=== PATIENT | male | born 1975 | race Caucasian/White ===

== ENCOUNTER 2016-08-17 20:26 | Emergency (ER) | payer SELFPAY ==
[2016-08-17 20:34] VITALS: BMI 27.2
[2016-08-17 21:51] LABS: ADD MANUAL DIFF? NO
[2016-08-17 21:59] LABS: BASO # 0.02 K/mm3 (0.0-2.0); BASO % 0.2 % (0.0-3.0); EOS # 0.1 (0.0-0.7); EOS % 0.8 % (1.5-5.0); GRAN # 7.43 (1.4-6.5); GRAN % 85.9 % (50.0-68.0); HEMATOCRIT 40.3 % (42.0-52.0); LYMPH # 0.8 (1.2-3.4); LYMPH % 8.9 % (22.0-35.0); MEAN CELL VOLUME 90.4 fL (80.0-105.0); MEAN CORPUSCULAR HEMOGLOBIN 30.3 pg (25.0-35.0); MEAN CORPUSCULAR HGB CONC 33.5 g/dl (31.0-37.0); MEAN PLATELET VOLUME 11.6 fl (7.0-11.0); MONO # 0.4 (0.1-0.6); MONO % 4.2 % (1.0-6.0); PLATELET COUNT 222 10^3/uL (120.0-450.0); RED CELL DISTRIBUTION WIDTH 12.7 % (11.5-14.5); WHITE BLOOD COUNT 8.7 10^3/ul (4.5-11.0)
[2016-08-17 22:18] LABS: ALB/GLOB RATIO 1.2 (1.1-1.8); ALKALINE PHOSPHATASE 60 U/L (38-133); ALT/SGPT 55 U/L (7-56); AST/SGOT 51 U/L (15-59); BILIRUBIN,TOTAL 0.5 mg/dL (0.2-1.3); BLOOD UREA NITROGEN 16 mg/dL (7-21); CALCIUM 9.3 mg/dL (8.4-10.5); CARBON DIOXIDE 26 mmol/L (21-33); CHLORIDE 104 mmol/L (98-107); GFR AFRICAN-AMERICAN > 60; GLUCOSE,RANDOM 124 mg/dL (70-110); POTASSIUM 3.6 mmol/L (3.6-5.0); SODIUM 141 mmol/L (132-148); TOTAL PROTEIN 7.7 g/dL (5.8-8.3)
--- NOTE | 2016-08-18 00:14 | ED PDOC ---
Arrival/HPI - General Chief Complaint: Palpitations Time Seen by Provider: 08/17/16 20:41 Historian: Patient - History of Present Illness Narrative History of Present Illness (Text): 08/18/16 00:11 Otf Robles is a 40 year old male, with a history of schizophrenia, presents to the emergency department complaining of anxiety and palpitations for past few hours. Patient states that symptoms presented after he became angry at home. Denies any chest pain or difficulty breathing. Denies fever, chills headache, dizziness, abdominal pain, nausea, vomiting, diarrhea, or any other complaints at this time. Denies suicidal or homicidal ideations. Time/Duration: 1-3 hours Symptom Onset: Gradual Symptom Course: Unchanged Severity Level: Mild Activities at Onset: Light Past Medical History - Provider Review Nursing Documentation Reviewed: Yes - Cardiac Hx Cardiac Disorders: No Hx Hypertension: No - Pulmonary Hx Tuberculosis: No - Neurological HX Cerebrovascular Accident: No Hx Seizures: No - Hematological/Oncological Hx Cancer: No - Genitourinary/Gynecological Hx Sexually Transmitted Diseases: No - Psychiatric Hx Schizophrenia: Yes Hx Substance Use: (denies) - Past Surgical History Past Surgical History: No Previous - Suicidal Assessment Feels Threatened In Home Enviroment: No Family/Social History - Physician Review Nursing Documentation Reviewed: Yes Family/Social History: No Known Family HX Smoking Status: n Hx Alcohol Use: No Hx Substance Use: (denies) Allergies/Home Meds Allergies/Adverse Reactions: Allergies No Known Allergies Allergy (Verified 08/07/14 22:01) Home Medications: Home Meds Medication Instructions Recorded Confirmed Risperidone [Risperdal] 1 mg PO DAILY 08/07/14 08/18/16 Review of Systems - Physician Review All systems were reviewed & negative as marked: Yes - Review of Systems Constitutional: Normal Eyes: Normal Respiratory: Normal. absent: SOB, Cough, Sputum Cardiovascular: Palpitations Gastrointestinal: Normal. absent: Abdominal Pain, Diarrhea, Nausea, Vomiting Psychiatric: Anxiety. absent: Suicidal Ideation Physical Exam Vital Signs Reviewed: Yes Vital Signs Temp Pulse Pulse Resp BP Pulse Ox 08/18/16 12:35 98.4 F 101 H 18 167/78 H 100 08/18/16 08:00 98.6 F 106 H 18 156/89 H 97 08/18/16 06:27 98.1 F 08/18/16 06:06 92 H 19 141/76 100 08/18/16 04:30 94 H 19 134/84 99 08/17/16 22:29 103 H 21 110/61 96 08/17/16 21:21 129 H 08/17/16 20:34 98.2 F 154 H 24 152/82 H 98 Temperature: Afebrile Blood Pressure: Normal Pulse: Tachycardic Respiratory Rate: Normal Appearance: Positive for: Well-Appearing, Non-Toxic, Comfortable Pain Distress: None Mental Status: Positive for: Alert and Oriented X 3 - Systems Exam Head: Present: Atraumatic, Normocephalic Pupils: Present: PERRL Extroacular Muscles: Present: EOMI Conjunctiva: Present: Normal Respiratory/Chest: Present: Clear to Auscultation, Good Air Exchange. No: Respiratory Distress, Accessory Muscle Use Cardiovascular: Present: Normal S1, S2, Tachycardic. No: Murmurs Abdomen: Present: Normal Bowel Sounds. No: Tenderness, Distention, Peritoneal Signs Upper Extremity: Present: Normal Inspection. No: Cyanosis, Edema Lower Extremity: Present: Normal Inspection. No: Edema Neurological: Present: GCS=15, CN II-XII Intact, Speech Normal Skin: Present: Warm, Dry, Normal Color. No: Rashes Psychiatric: Present: Alert, Oriented x 3. No: Suicidal Ideation, Homicidal Ideation Medical Decision Making ED Course and Treatment: 08/18/16 00:16 Impression: A 40 year old male who presents to the emergency room complaining of anxiety and palpitations which began few hours prior to arrival. Plan: -- EKG -- Drug Screen -- Chest X-ray -- Ativan -- Urinalysis -- Reassess and disposition Progress Notes: 08/18/16 00:16 EKG reviewed by me: Sinus Tachy @ 146 bpm. Possible left atrial enlargement. repeat sinus tachycardia rate 102 08/18/16 05:52 Chest X-ray interpreted by me No acute processes. - Lab Interpretations Lab Results: 08/17/16 21:10 08/17/16 21:10 Lab Results 08/17/16 21:10: WBC 8.7, RBC 4.46, Hgb 13.5 L, Hct 40.3 L, MCV 90.4, MCH 30.3, MCHC 33.5, RDW 12.7, Plt Count 222, MPV 11.6 H, Gran % 85.9 H, Lymph % (Auto) 8.9 L, [place] % (Auto) 4.2, Eos % (Auto) 0.8 L, Baso % (Auto) 0.2, Gran # 7.43 H, Lymph # 0.8 L, [place] # 0.4, Eos # 0.1, Baso # 0.02, Sodium 141, Potassium 3.6, Chloride 104, Carbon Dioxide 26, Anion Gap 15, BUN 16, Creatinine 1.2, Est GFR ( Amer) > 60, Est GFR (Non-Af Amer) > 60, Random Glucose 124 H, Calcium 9.3, Total Bilirubin 0.5, AST 51, ALT 55, Alkaline Phosphatase 60, Total Protein 7.7, Albumin 4.2, Globulin 3.5, Albumin/Globulin Ratio 1.2, Salicylates < 1 L, Acetaminophen < 10.0 L, Alcohol, Quantitative < 10 08/17/16 00:00: Urine Color Yellow, Urine Appearance Slight-cloudy, Urine pH 6.0 , Ur Specific [place] >= 1.030, Urine Protein Trace H, Urine Glucose (UA) Negative, Urine Ketones 15 H, Urine Blood Trace-lysed H, Urine Nitrate Negative , Urine Bilirubin Negative, Urine Urobilinogen 0.2, Ur Leukocyte Esterase Negative, Urine RBC 1 - 3, Urine WBC 0 - 2, Ur Epithelial Cells 0 - 2, Urine Bacteria Few, Urine Other Uyeast, Urine Opiates Screen Negative, Urine Methadone Screen Negative, Ur Barbiturates Screen Negative, Ur Phencyclidine Scrn Negative, Ur Amphetamines Screen Negative, U Benzodiazepines Scrn Negative , U Oth Cocaine Metabols Negative, U Cannabinoids Screen Negative - RAD Interpretation Radiology Orders: 08/17/16 20:50 CHEST PORTABLE [RAD] Stat - EKG Interpretation EKG Interpretation (Text): 08/18/16 05:45 sinus rate 72 no acute changes Interpreted by ED Physician: Yes Type: 12 lead EKG - Medication Orders Current Medication Orders: Discontinued Medications Sodium Chloride (Sodium Chloride 0.9%) 1,000 mls @ 1,000 mls/hr IV .Q1H MANGO Last Admin: 08/18/16 06:01 Dose: 1,000 MLS/HR eMAR Start Stop Document 08/18/16 06:01 (Rec: 08/18/16 06:01 MR [facility] [place]-[id number]) Intravenous Solution Start Date 08/18/16 Start Time 06:01 End Date 08/18/16 End time 07:01 Total Infusion Time 60 Lorazepam (Ativan) 2 mg IVP STAT STA Stop: 08/17/16 20:51 Last Admin: 08/17/16 21:21 Dose: 2 MG Behavioural Document 08/17/16 21:21 MR (Rec: 08/17/16 21:21 [facility] [place]-[id number]) Maintenance Maintenance Dose Yes IVP Administration Document 08/17/16 21:21 MR (Rec: 08/17/16 21:21 [facility] [place]-[id number]) Charges for Administration # of IVP Administrations 1 - Transfer of Care Patient signed out to Dr:: trever pes transfer - Scribe Statement The provider has reviewed the documentation as recorded by the Scribe Abe Wright Provider Attestation: All medical record entries made by the Scribe were at my direction and personally dictated by me. I have reviewed the chart and agree that the record accurately reflects my personal performance of the history, physical exam, medical decision making, and the department course for this patient. I have also personally directed, reviewed, and agree with the discharge instructions and disposition. Disposition/Present on Arrival - Present on Arrival Any Indicators Present on Arrival: No History of DVT/PE: No History of Uncontrolled Diabetes: No Urinary Catheter: No History of Decub. Ulcer: No History Surgical Site Infection Following: None - Disposition Have Diagnosis and Disposition been Completed?: Yes Diagnosis: Psychosis Disposition: HOSPITALIZED Disposition Time: 07:00 Patient Problems: Current Active Problems Problem Status Diagnosed Schizophrenia Acute Condition: STABLE Additional Instructions: pt is medically stable for pes admission and transfer chest x ray nad Referrals: PCP,NO [Primary Care Provider] - Follow up with primary
[2016-08-18 00:39] LABS: URINE BILIRUBIN NEGATIVE (NEGATIVE); URINE BLOOD TRACE-LYSED (NEGATIVE); URINE GLUCOSE (UA) NEGATIVE (NEGATIVE); URINE KETONE 15 mg/dL (NEGATIVE); URINE LEUKOCYTE ESTERASE NEGATIVE Leu/uL (NEGATIVE); URINE PROTEIN TRACE mg/dL (<30 mg/dL); URINE UROBILINOGEN 0.2 E.U./dL (<1 E.U./dL)
[2016-08-18 00:45] LABS: URINE APPEARANCE SLIGHT-CLOUDY (CLEAR); URINE COLOR YELLOW (YELLOW)
[2016-08-18 01:02] LABS: URINE EPITHELIAL CELLS 0 - 2 /hpf (0-5); URINE WBC 0 - 2 /hpf (0-6)
[2016-08-18 01:03] LABS: URINE BACTERIA FEW (NEG)
[2016-08-18] MEDS ORDERED: Sodium Chloride 0.9% 1,000 ML IV SCH (06:00)
--- NOTE | 2016-08-18 07:08 | ED PDOC ---
Physical Exam Vital Signs Reviewed: Yes Vital Signs Temp Pulse Pulse Resp BP Pulse Ox 08/18/16 08:00 98.6 F 106 H 18 156/89 H 97 08/18/16 06:27 98.1 F 08/18/16 06:06 92 H 19 141/76 100 08/18/16 04:30 94 H 19 134/84 99 08/17/16 22:29 103 H 21 110/61 96 08/17/16 21:21 129 H 08/17/16 20:34 98.2 F 154 H 24 152/82 H 98 Temperature: Afebrile Blood Pressure: Hypertensive Pulse: Tachycardic Respiratory Rate: Normal Medical Decision Making ED Course and Treatment: 08/18/16 07:08 Patient signed out to me by Dr. Soto. Pending bed placement. 08/18/16 07:20 On re-evaluation, patient resting comfortably in no acute distress and denies any complaints. 08/18/16 12:04 Kimberlee states pt has been accepted to Dr. Lucho Vasquez form signed 08/18/16 12:17 shraddha Eller from ED, aware of transfer - Lab Interpretations Lab Results: 08/17/16 21:10 08/17/16 21:10 Lab Results 08/17/16 21:10: WBC 8.7, RBC 4.46, Hgb 13.5 L, Hct 40.3 L, MCV 90.4, MCH 30.3, MCHC 33.5, RDW 12.7, Plt Count 222, MPV 11.6 H, Gran % 85.9 H, Lymph % (Auto) 8.9 L, [place] % (Auto) 4.2, Eos % (Auto) 0.8 L, Baso % (Auto) 0.2, Gran # 7.43 H, Lymph # 0.8 L, [place] # 0.4, Eos # 0.1, Baso # 0.02, Sodium 141, Potassium 3.6, Chloride 104, Carbon Dioxide 26, Anion Gap 15, BUN 16, Creatinine 1.2, Est GFR ( Amer) > 60, Est GFR (Non-Af Amer) > 60, Random Glucose 124 H, Calcium 9.3, Total Bilirubin 0.5, AST 51, ALT 55, Alkaline Phosphatase 60, Total Protein 7.7, Albumin 4.2, Globulin 3.5, Albumin/Globulin Ratio 1.2, Salicylates < 1 L, Acetaminophen < 10.0 L, Alcohol, Quantitative < 10 08/17/16 00:00: Urine Color Yellow, Urine Appearance Slight-cloudy, Urine pH 6.0 , Ur Specific [place] >= 1.030, Urine Protein Trace H, Urine Glucose (UA) Negative, Urine Ketones 15 H, Urine Blood Trace-lysed H, Urine Nitrate Negative , Urine Bilirubin Negative, Urine Urobilinogen 0.2, Ur Leukocyte Esterase Negative, Urine RBC 1 - 3, Urine WBC 0 - 2, Ur Epithelial Cells 0 - 2, Urine Bacteria Few, Urine Other Uyeast, Urine Opiates Screen Negative, Urine Methadone Screen Negative, Ur Barbiturates Screen Negative, Ur Phencyclidine Scrn Negative, Ur Amphetamines Screen Negative, U Benzodiazepines Scrn Negative , U Oth Cocaine Metabols Negative, U Cannabinoids Screen Negative - RAD Interpretation Radiology Orders: 08/17/16 20:50 CHEST PORTABLE [RAD] Stat - Medication Orders Current Medication Orders: Sodium Chloride (Sodium Chloride 0.9%) 1,000 mls @ 1,000 mls/hr IV .Q1H MANGO Last Admin: 08/18/16 06:01 Dose: 1,000 MLS/HR eMAR Start Stop Document 08/18/16 06:01 MR (Rec: 08/18/16 06:01 [facility]-[id number]) Intravenous Solution Start Date 08/18/16 Start Time 06:01 End Date 08/18/16 End time 07:01 Total Infusion Time 60 Discontinued Medications Lorazepam (Ativan) 2 mg IVP STAT STA Stop: 08/17/16 20:51 Last Admin: 08/17/16 21:21 Dose: 2 MG Behavioural Document 08/17/16 21:21 MR (Rec: 08/17/16 21:21 [facility]-[id number]) Maintenance Maintenance Dose Yes IVP Administration Document 08/17/16 21:21 MR (Rec: 08/17/16 21:21 [facility]-[id number]) Charges for Administration # of IVP Administrations 1 - Scribe Statement The provider has reviewed the documentation as recorded by the Scribe Debbie Mccarty Provider Scribe Attestation: All medical record entries made by the Scribe were at my direction and personally dictated by me. I have reviewed the chart and agree that the record accurately reflects my personal performance of the history, physical exam, medical decision making, and the department course for this patient. I have also personally directed, reviewed, and agree with the discharge instructions and disposition. Disposition/Present on Arrival - Present on Arrival Any Indicators Present on Arrival: No History of DVT/PE: No History of Uncontrolled Diabetes: No Urinary Catheter: No History of Decub. Ulcer: No History Surgical Site Infection Following: None - Disposition Have Diagnosis and Disposition been Completed?: Yes Diagnosis: Psychosis Disposition: HOSPITALIZED Disposition Time: 12:05 Patient Plan: Transfer To ([facility]) Patient Problems: Current Active Problems Problem Status Diagnosed Schizophrenia Acute Condition: STABLE Additional Instructions: pt is medically stable for pes admission and transfer chest x ray nad Referrals: PCP,NO [Primary Care Provider] - Follow up with primary
--- NOTE | 2016-08-18 07:36 | RAD ---
HISTORY: pes COMPARISON: 08/07/2014 FINDINGS: LUNGS: No active pulmonary disease. PLEURA: No significant pleural effusion identified, no pneumothorax apparent. CARDIOVASCULAR: Normal. OSSEOUS STRUCTURES: No significant abnormalities. VISUALIZED UPPER ABDOMEN: Normal. OTHER FINDINGS: EKG leads in place IMPRESSION: No active disease. No interval pathology appreciated
[2016-08-18 11:41] VITALS: RESP 18
[2016-08-18 12:47] VITALS: BP 167/78; PULSE 101; TEMP 98.4; O2SAT 100
--- NOTE | 2016-08-18 16:18 | CARD ---
APPROVED REPORT EKG Measurement Heart [id number] <Conclusion> Sinus tachycardia NSSTW changes
--- NOTE | 2016-08-18 16:28 | CARD ---
APPROVED REPORT EKG Measurement Heart [id number] <Conclusion> Sinus tachycardia Borderline 1st degree AVB Mild NSSTW changes
== END 2016-08-18 12:45 | disposition short-term general hospital (02) ==
LOC: ED 20:26 → EDBD 20:26 → ED 08-18 12:45
DX: F29 Unspecified psychosis not due to a substance or known physiological condition (principal)
CPT/HCPCS: 71010; 80053; 81001; 85025; 90791; 93005; 96361; 96374; 99285; G0480; J2060; J7040

== ENCOUNTER 2017-06-16 12:50 | Emergency (ER) | payer MEDICAID, OTHER ==
[2017-06-16 12:51] VITALS: BMI 27.2
[2017-06-16 13:22] VITALS: BP 149/92; PULSE 118; RESP 17; TEMP 97.7; O2SAT 100
[2017-06-16] MEDS ORDERED: Bacitracin 500 Units/gm Oint Foilpak UD TOP ONE (13:31)
--- NOTE | 2017-06-27 07:38 | ED PDOC ---
Arrival/HPI - General Chief Complaint: Abnormal Skin Integrity Time Seen by Provider: 06/16/17 13:30 Historian: Patient - History of Present Illness Narrative History of Present Illness (Text): 06/27/17 07:38 A 41 year old male, whose past medical history includes schizophrenia, presents to the emergency department complaining of laceration to right thumb. Patient states he broke a tea pot and placed the handle in his pocket and cut his finger. Patient denies any pain or any other complaints at this time. Symptom Onset: Sudden Symptom Course: Unchanged Activities at Onset: Rest Context: Home Past Medical History - Provider Review Nursing Documentation Reviewed: Yes - Cardiac Hx Cardiac Disorders: No Hx Hypertension: No - Pulmonary Hx Tuberculosis: Yes (PPD +) - Neurological HX Cerebrovascular Accident: No Hx Seizures: No - Hematological/Oncological Hx Cancer: No Other/Comment: Chicken pox - Genitourinary/Gynecological Hx Sexually Transmitted Diseases: No - Psychiatric Hx Schizophrenia: Yes Hx Substance Use: No - Past Surgical History Past Surgical History: No Previous - Surgical History Other/Comment: laproscopy - Suicidal Assessment Feels Threatened In Home Enviroment: No Family/Social History - Physician Review Nursing Documentation Reviewed: Yes Family/Social History: No Known Family HX Smoking Status: Never Smoked Hx Alcohol Use: Yes Frequency of alcohol use: Socially Hx Substance Use: No Allergies/Home Meds Allergies/Adverse Reactions: Allergies No Known Allergies Allergy (Verified 06/16/17 12:57) Home Medications: Home Meds Medication Instructions Recorded Confirmed No Known Home Med 06/16/17 06/16/17 Review of Systems - Physician Review All systems were reviewed & negative as marked: Yes - Review of Systems Skin: Other (laceration to right 1st digit) Neurological: absent: Headache, Dizziness Physical Exam Vital Signs Reviewed: Yes Vital Signs Temp Pulse Resp BP Pulse Ox 06/16/17 13:21 97.7 F 118 H 17 149/92 H 100 06/16/17 12:59 97.8 F 111 H 18 134/93 H 99 Temperature: Afebrile Blood Pressure: Hypertensive Pulse: Tachycardic Respiratory Rate: Normal Appearance: Positive for: Well-Appearing, Non-Toxic, Comfortable Pain Distress: None Mental Status: Positive for: Alert and Oriented X 3 - Systems Exam Head: Present: Atraumatic, Normocephalic Pupils: Present: PERRL Extroacular Muscles: Present: EOMI Conjunctiva: Present: Normal Mouth: Present: Moist Mucous Membranes Neck: Present: Normal Range of Motion Respiratory/Chest: Present: Clear to Auscultation, Good Air Exchange. No: Respiratory Distress, Accessory Muscle Use Cardiovascular: Present: Regular Rate and Rhythm, Normal S1, S2. No: Murmurs Abdomen: Present: Normal Bowel Sounds. No: Tenderness, Distention, Peritoneal Signs Back: Present: Normal Inspection Upper Extremity: Present: Normal Inspection. No: Cyanosis, Edema Lower Extremity: Present: Normal Inspection. No: Edema Neurological: Present: GCS=15, CN II-XII Intact, Speech Normal Skin: Present: Warm, Dry, Normal Color, Laceration (0.5 cm laceration to right 1st digit; denies any pain). No: Rashes Psychiatric: Present: Alert, Oriented x 3, Normal Insight, Normal Concentration Medical Decision Making ED Course and Treatment: 06/27/17 07:36 Impression: A 41 year old male with laceration to right thumb. Plan: -- Bacitracin -- Reassess and disposition Prior Visits: Notes and results from previous visits were reviewed. Patient was last seen in the emergency department on 08/18/16 for evaluation of agitation, anxiety and palpitations. Patient was admitted to psych. Progress Notes: Patient doesn't require laceration repair. - Medication Orders Current Medication Orders: Discontinued Medications Bacitracin (Bacitracin) 1 ea TOP ONCE ONE Stop: 06/16/17 13:32 Last Admin: 06/16/17 13:57 Dose: 1 ea - Scribe Statement The provider has reviewed the documentation as recorded by the Reyna Benjamin Provider Scribe Attestation: All medical record entries made by the Scribjimenez were at my direction and personally dictated by me. I have reviewed the chart and agree that the record accurately reflects my personal performance of the history, physical exam, medical decision making, and the department course for this patient. I have also personally directed, reviewed, and agree with the discharge instructions and disposition. Disposition/Present on Arrival - Present on Arrival Any Indicators Present on Arrival: No History of DVT/PE: No History of Uncontrolled Diabetes: No Urinary Catheter: No History of Decub. Ulcer: No History Surgical Site Infection Following: None - Disposition Have Diagnosis and Disposition been Completed?: Yes Diagnosis: Laceration Disposition: HOME/ ROUTINE Disposition Time: 12:00 Condition: STABLE Discharge Instructions (ExitCare): Laceration (ED), Laceration Without Closure (ED) Additional Instructions: return to er with worsening symptoms or concerns. Referrals: [facility] [Outside] - Follow up with primary [facility] [place]] - Follow up with primary PCP,NO [Primary Care Provider] - Follow up with primary Forms: [employer] (Samoan)
== END 2017-06-16 13:58 | disposition home or self-care (01) ==
LOC: ED 12:50
DX: S61.011A Laceration without foreign body of right thumb without damage to nail, initial encounter (principal); W45.8XXA Other foreign body or object entering through skin, initial encounter; Y92.89 Other specified places as the place of occurrence of the external cause

== ENCOUNTER 2018-02-20 20:36 | Inpatient (IN) | payer MEDICAID, OTHER ==
[2018-02-20 20:37] VITALS: BMI 27.2
[2018-02-20 21:20] VITALS: O2SAT 100
[2018-02-20 21:33] LABS: PH,URINE 6.5 (4.7-8.0); URINE BILIRUBIN NEGATIVE (NEGATIVE); URINE BLOOD TRACE-INTACT (NEGATIVE); URINE GLUCOSE (UA) NEGATIVE (NEGATIVE); URINE LEUKOCYTE ESTERASE NEGATIVE Leu/uL (NEGATIVE); URINE PROTEIN NEGATIVE mg/dL (<30 mg/dL)
[2018-02-20 21:34] LABS: BASO # 0.01 K/mm3 (0.0-2.0); BASO % 0.1 % (0.0-3.0); EOS # 0.6 (0.0-0.7); EOS % 6.6 % (1.5-5.0); GRAN # 4.87 (1.4-6.5); GRAN % 54.9 % (50.0-68.0); LYMPH # 2.7 (1.2-3.4); LYMPH % 30.8 % (22.0-35.0); MEAN CELL VOLUME 94.8 fl (80.0-105.0); MEAN CORPUSCULAR HGB CONC 32.7 g/dl (31.0-37.0); MEAN PLATELET VOLUME 11.1 fl (7.0-11.0); MONO # 0.7 (0.1-0.6); MONO % 7.6 % (1.0-6.0); RBC 4.84 10^6/uL (3.5-6.1); RED CELL DISTRIBUTION WIDTH 12.9 % (11.5-14.5); WHITE BLOOD COUNT 8.9 10^3/ul (4.5-11.0)
[2018-02-20 21:45] LABS: ACETAMINOPHEN < 10.0 ug/ml (10.0-20.0); SALICYLATE < 1 mg/dL (2.0-20.0)
[2018-02-20 21:48] LABS: ALB/GLOB RATIO 1.4 (1.1-1.8); ALBUMIN 4.3 g/dL (3.0-4.8); ALT/SGPT 54 U/L (7-56); AST/SGOT 46 U/L (17-59); BLOOD UREA NITROGEN 14 mg/dL (7-21); CALCIUM 9.4 mg/dL (8.4-10.5); GFR NON-AFRICAN AMERICAN > 60
[2018-02-20 21:56] LABS: BARBITURATES, UR NEGATIVE (NEGATIVE); BENZODIAZEPINES, UR NEGATIVE (NEGATIVE); OPIATES, UR NEGATIVE (NEGATIVE); PHENCYCLIDINE, UR NEGATIVE (NEGATIVE)
[2018-02-20 22:15] LABS: URINE APPEARANCE CLEAR (CLEAR)
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
[2018-02-21] MEDS ORDERED: Magnesium Hydroxide Susp 30 ml UD PO PRN (02:41)
[2018-02-21] MEDS ORDERED: Alum-Mag Hydrox-Simethicone Susp (30 mL) PO PRN (02:41)
--- NOTE | 2018-02-21 02:53 | PCM.BM ---
<Caleb Gomez - Last Filed: 02/21/18 02:50> Treatment Plan Problems - Problems identified on initial assessmt AGITATION/AGGRESSIVE BEHAVIOR Date Initiated: 02/21/18 Time Initiated: 02:50 Assessment reference: NA Status: Active Priority: 1 POOR IMPULSE CONTROL Date Initiated: 02/21/18 Time Initiated: 02:50 Assessment reference: NA Status: Active Priority: 2 MEDICATION NON ADHERENCE Date Initiated: 02/21/18 Time Initiated: 02:50 Assessment reference: NA Status: Active Treatment assets and liabiliti Patient Assests: adapts well, cooperative, motivated, self-reliant, ADL independent, physically healthy, good support system, negotiates basic needs, cognitively intact Patient Liabilities: financial problems, relationship conflicts - Milieu Protocol Maintain good personal hygiene: daily Encourage regular showers, every shift Rem ind patient to perform daily oral care, every shift Assist patient to perform ADL's Maintain personal safety: every shift Educate patient to report safety concerns to staff, every shift Monitor environment for contraband/sharps Medication safety: Monitor for expected outcome, potential side effects: every shift, Assess barriers to learning: every shift, Assess readiness for medication education: every shift Family Contact Family involvement: Family/SO is involved Family contact: Patient agrees to contact Discharge/Continuing Care - Education Needs Education Needs: Patient Medication, Patient Diagnosis/Disease Process, Patient Coping Skills, Patient Anger Management skills, Patient Activities of Daily Living, Patient Health Practices/Safety, Patient Personal Hygiene/Grooming - Discharge Discharge Criteria: Tolerates medication w/o severe side effects, Free of Homicidal thoughts, Free of agitation, Normal sleep pattern <Jackie Spencer - Last Filed: 02/21/18 11:54> - Diagnosis (1) Schizophrenia Status: Acute Interventions: 02/21/18 11:54 Abilify 10 mg HS for mood and impulse control * Trazodone 50 mg HS to help with sleep/mood * Outreach to mother for further collateral if patient consents <Yana Gong - Last Filed: 02/23/18 15:36> Family Contact Family involvement: Family/SO is involved Family contact: Patient agrees to contact - Outside Agency [facility] Care involvment: Not involved
[2018-02-21 07:47] LABS: GLUCOSE,FASTING 106 mg/dL (65-110); HDL CHOLESTEROL 40 mg/dL (29-60)
[2018-02-21 07:57] LABS: LDL CHOLESTEROL 129 mg/dL (0-129)
--- NOTE | 2018-02-21 08:47 | RAD ---
Date of service: 02/20/2018 PROCEDURE: CHEST RADIOGRAPH, 1 VIEW HISTORY: medical screening COMPARISON: 08/17/2016. FINDINGS: LUNGS: The lungs are well inflated and clear. PLEURA: No pneumothorax or pleural fluid seen. CARDIOVASCULAR: Normal. OSSEOUS STRUCTURES: No significant abnormalities. VISUALIZED UPPER ABDOMEN: Normal. OTHER FINDINGS: None. IMPRESSION: No active pulmonary disease.
--- NOTE | 2018-02-21 09:20 | CARD ---
APPROVED REPORT Date of service: 02/20/2018 EKG Measurement Heart [id number] <Conclusion> Sinus tachycardia Otherwise normal ECG
--- NOTE | 2018-02-21 11:52 | PCM.PSYCH ---
Initial Psychiatric Evaluation - Initial Psychiatric Evaluation Type of Admission: Voluntary History of Present Illness and Precipitating Events: Patient is a 42-year-old [place] male with a history of schizophrenia, prior psychiatric admission at [facility] ([facility] in 08/2016, no history of suicide attempts, likely noncompliance with medications, hx of aggression toward his mother in the past who brought himself to the ER for help because he feared that he would hurt his mother. Patient reported that he has been getting increasingly irritated, beck and argumentative with his mother. He is annoyed that she keeps bringing up the same issues over and over again. Patient had thoughts of assaulting his mother however went to the hospital instead to obtain help so that "things would not escalate". Patient denies depression, hallucinations or any new major stressors. Patient indicates that he has been in psychiatric treatment with Dr. Wyatt and prescribed Abilify 10 mg daily. Patient reports he has been taking Abilify at this dose for the last 30 days however this conflicts with ER reports in which patient reported noncompliance with medications since his discharge from [facility]. PSYCHIATRIC HISTORY Patient has been psychiatrically hospitalized on 4-5 prior occasions. Most recently hospitalized August 18 to August 27, 2016 at [facility] ([facility] At that time hes brought in by police after his mother called 911 due to aggression at home. Patient was discharged at that time on Abilify 30 mg Q p.m. and trazodone 50 mg HS PRN and given a diagnosis of chronic schizophrenia. Patient denies any history of SA. Prior medication trials include risperdal and zyprexa. SOCIAL HISTORY [place] He is . He resides with his mother. 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 He denies any drug or alcohol issues. Patient denies any tobacco use. Patient has a histor y of aggression with his mother which prompted police involvement leading to his psychiatric hospitalization at [facility] August 2016 The patient failed the outpatient lower level of care: Yes Current Medications: Active Medications Generic Name Dose Route Start Last Admin Trade Name Freq PRN Reason Stop Dose Admin Acetaminophen 650 mg 02/21/18 02:41 Tylenol 325mg Tab PO Q4H PRN Pain, Mild (1-3) Al Hydrox/Mg Hydrox/Simethicone 30 ml 02/21/18 02:41 Maalox Plus 30 Ml PO DAILY PRN Upset Stomach Magnesium Hydroxide 30 ml 02/21/18 02:41 Milk Of Magnesia PO DAILY PRN Constipation Present on Admission - Present on Admission Any Indicators Present on Admission: No History of DVT/PE: No Past Patient History - PSYCHIATRIC Hx Substance Use: No - Infectious Disease Hx of Infectious Diseases: None - CARDIAC Hx Cardiac Disorders: No Hx Hypertension: No - PULMONARY Hx Respiratory Disorders: No Hx Tuberculosis: Yes (PPD +) - NEUROLOGICAL HX Cerebrovascular Accident: No Hx Seizures: No - HEENT Hx HEENT Problems: No - RENAL Hx Chronic Kidney Disease: No - ENDOCRINE/METABOLIC Hx Endocrine Disorders: No - HEMATOLOGICAL/ONCOLOGICAL Hx Blood Disorders: No Hx Cancer: No Other/Comment: Chicken pox - INTEGUMENTARY Hx Dermatological Problems: No - MUSCULOSKELETAL/RHEUMATOLOGICAL Hx Musculoskeletal Disorders: No - GASTROINTESTINAL Hx Gastrointestinal Disorders: No - GENITOURINARY/GYNECOLOGICAL Hx Genitourinary Disorders: No Hx Sexually Transmitted Disorders: No - SURGICAL HISTORY Hx Surgeries: No Other/Comment: laproscopy Meds Home Medications: Home Medication List Medication Instructions Recorded Confirmed Type Divalproex [Depakote ER] 500 mg PO BID #30 ter 03/02/18 Rx RX: ARIPiprazole [Abilify] 10 mg PO AMHS #30 tab 03/02/18 Rx RX: traZODone [Desyrel] 50 mg PO HS #14 tab 03/02/18 Rx Allergies/Adverse Reactions: Allergies Allergy/AdvReac Type Severity Reaction Status Date / Time No Known Allergies Allergy Verified 06/16/17 12:57 Mental Status Examination - Personal Presentation Personal Presentation: Looks stated age - Affect Affect: Constricted - Motor Activity Motor Activity: Calm - Reliability in Providing Information Reliability in Providing Information: Fair - Speech Speech: Organized - Mood Mood: Anxious - Formal Thought Process Formal Thought Process: Other (concrete) - Obsessions/Compulsions Obsessions: No Compulsions: No - Cognitive Functions Orientation: Person, Place, Situation Sensorium: Alert Abstract Thinking: [place] Estimate of Intelligence: Average Judgement: Imparied, as evidence by: Lack of insight into illness - Risk Risk: Homicidal - Strength & Assets Inventory Strength & Assets Inventory: Family support, Cooperative Psychiatric Physical Exam - Physical Exam Reviewed and confirmed: Emergency Department Physical Exam (Please refer to ER findings) Results - Vital Signs Recent Vital Signs: Last Vital Signs Temp 98.4 F 02/20/18 21:10 Pulse 98 H 02/21/18 00:14 Resp 20 02/21/18 01:53 BP 124/71 02/21/18 00:14 Pulse Ox 100 02/21/18 00:14 - Labs Result Diagrams: 02/20/18 21:10 02/20/18 21:10 Labs: Laboratory Results - last 24 hr 02/20/18 02/20/18 02/20/18 21:03 21:03 21:10 WBC 8.9 RBC 4.84 Hgb 15.0 Hct 45.9 MCV 94.8 MCH 31.0 MCHC 32.7 RDW 12.9 Plt Count 264 MPV 11.1 H Gran % 54.9 Lymph % (Auto) 30.8 [place] % (Auto) 7.6 H Eos % (Auto) 6.6 H Baso % (Auto) 0.1 Gran # 4.87 Lymph # (Auto) 2.7 [place] # (Auto) 0.7 H Eos # (Auto) 0.6 Baso # (Auto) 0.01 Sodium Potassium Chloride Carbon Dioxide Anion Gap BUN Creatinine Est GFR ( Amer) Est GFR (Non-Af Amer) Random Glucose Calcium Total Bilirubin AST ALT Alkaline Phosphatase Total Protein Albumin Globulin Albumin/Globulin Ratio Urine Color yellow Urine Appearance Clear Urine pH 6.5 Ur Specific [place] 1.020 Urine Protein Negative Urine Glucose (UA) Negative Urine Ketones Negative Urine Blood Trace-intact H Urine Nitrate Negative Urine Bilirubin Negative Urine Urobilinogen 1.0 H Ur Leukocyte Esterase Negative Urine RBC 5 - 10 Urine WBC 5 - 10 Ur Epithelial Cells 4 - 5 Salicylates Urine Opiates Screen Negative Urine Methadone Screen Negative Acetaminophen Ur Barbiturates Screen Negative Ur Phencyclidine Scrn Negative Ur Amphetamines Screen Negative U Benzodiazepines Scrn Negative U Oth Cocaine Metabols Negative U Cannabinoids Screen Negative Alcohol, Quantitative 02/20/18 02/20/18 02/20/18 21:10 21:10 21:10 WBC RBC Hgb Hct MCV MCH MCHC RDW Plt Count MPV Gran % Lymph % (Auto) [place] % (Auto) Eos % (Auto) Baso % (Auto) Gran # Lymph # (Auto) [place] # (Auto) Eos # (Auto) Baso # (Auto) Sodium 141 Potassium 3.5 L Chloride 104 Carbon Dioxide 27 Anion Gap 14 BUN 14 Creatinine 0.9 Est GFR ( Amer) > 60 Est GFR (Non-Af Amer) > 60 Random Glucose 105 Calcium 9.4 Total Bilirubin 0.3 AST 46 ALT 54 Alkaline Phosphatase 59 Total Protein 7.3 Albumin 4.3 Globulin 3.1 Albumin/Globulin Ratio 1.4 Urine Color Urine Appearance Urine pH Ur Specific [place] Urine Protein Urine Glucose (UA) Urine Ketones Urine Blood Urine Nitrate Urine Bilirubin Urine Urobilinogen Ur Leukocyte Esterase Urine RBC Urine WBC Ur Epithelial Cells Salicylates < 1 L Urine Opiates Screen Urine Methadone Screen Acetaminophen < 10.0 L Ur Barbiturates Screen Ur Phencyclidine Scrn Ur Amphetamines Screen U Benzodiazepines Scrn U Oth Cocaine Metabols U Cannabinoids Screen Alcohol, Quantitative < 10 DSM Plan - DSM 5 DSM 5 Diagnosis: Schizophrenia - Recommended/Plan of Treatment Treatment Recommendations and Plan of Treatment: * group, milieu and supportive tx * Abilify 10 mg HS for mood and impulse control * Trazodone 50 mg HS to help with sleep/mood * Outreach to mother for further collateral if patient consents * Vitals reviewed and noted below: Selected Entries 02/20/18 02/21/18 02/21/18 21:10 00:14 01:53 Temperature 98.4 F Pulse Rate 116 H 98 H Respiratory 18 16 20 Rate Blood Pressure 135/84 124/71 * Please refer to ER notes for full medical history, medications, ROS and PE. * Admission labs noted below: Laboratory Tests 02/20/18 02/20/18 02/20/18 21:03 21:03 21:10 WBC 8.9 RBC 4.84 Hgb 15.0 Hct 45.9 MCV 94.8 MCH 31.0 MCHC 32.7 RDW 12.9 Plt Count 264 MPV 11.1 H Gran % 54.9 Lymph % (Auto) 30.8 [place] % (Auto) 7.6 H Eos % (Auto) 6.6 H Baso % (Auto) 0.1 Gran # 4.87 Lymph # (Auto) 2.7 [place] # (Auto) 0.7 H Eos # (Auto) 0.6 Baso # (Auto) 0.01 Sodium Potassium Chloride Carbon Dioxide Anion Gap BUN Creatinine Est GFR ( Amer) Est GFR (Non-Af Amer) Random Glucose Fasting Glucose Calcium Total Bilirubin AST ALT Alkaline Phosphatase Total Protein Albumin Globulin Albumin/Globulin Ratio Triglycerides Cholesterol LDL Cholesterol Direct HDL Cholesterol TSH 3rd Generation Urine Color yellow Urine Appearance Clear Urine pH 6.5 Ur Specific [place] 1.020 Urine Protein Negative Urine Glucose (UA) Negative Urine Ketones Negative Urine Blood Trace-intact H Urine Nitrate Negative Urine Bilirubin Negative Urine Urobilinogen 1.0 H Ur Leukocyte Esterase Negative Urine RBC 5 - 10 Urine WBC 5 - 10 Ur Epithelial Cells 4 - 5 Salicylates Urine Opiates Screen Negative Urine Methadone Screen Negative Acetaminophen Ur Barbiturates Screen Negative Ur Phencyclidine Scrn Negative Ur Amphetamines Screen Negative U Benzodiazepines Scrn Negative U Oth Cocaine Metabols Negative U Cannabinoids Screen Negative Alcohol, Quantitative 02/20/18 02/20/18 02/20/18 21:10 21:10 21:10 WBC RBC Hgb Hct MCV MCH MCHC RDW Plt Count MPV Gran % Lymph % (Auto) [place] % (Auto) Eos % (Auto) Baso % (Auto) Gran # Lymph # (Auto) [place] # (Auto) Eos # (Auto) Baso # (Auto) Sodium 141 Potassium 3.5 L Chloride 104 Carbon Dioxide 27 Anion Gap 14 BUN 14 Creatinine 0.9 Est GFR ( Amer) > 60 Est GFR (Non-Af Amer) > 60 Random Glucose 105 Fasting Glucose Calcium 9.4 Total Bilirubin 0.3 AST 46 ALT 54 Alkaline Phosphatase 59 Total Protein 7.3 Albumin 4.3 Globulin 3.1 Albumin/Globulin Ratio 1.4 Triglycerides Cholesterol LDL Cholesterol Direct HDL Cholesterol TSH 3rd Generation Urine Color Urine Appearance Urine pH Ur Specific [place] Urine Protein Urine Glucose (UA) Urine Ketones Urine Blood Urine Nitrate Urine Bilirubin Urine Urobilinogen Ur Leukocyte Esterase Urine RBC Urine WBC Ur Epithelial Cells Salicylates < 1 L Urine Opiates Screen Urine Methadone Screen Acetaminophen < 10.0 L Ur Barbiturates Screen Ur Phencyclidine Scrn Ur Amphetamines Screen U Benzodiazepines Scrn U Oth Cocaine Metabols U Cannabinoids Screen Alcohol, Quantitative < 10 02/21/18 02/21/18 07:00 07:00 WBC RBC Hgb Hct MCV MCH MCHC RDW Plt Count MPV Gran % Lymph % (Auto) [place] % (Auto) Eos % (Auto) Baso % (Auto) Gran # Lymph # (Auto) [place] # (Auto) Eos # (Auto) Baso # (Auto) Sodium Potassium Chloride Carbon Dioxide Anion Gap BUN Creatinine Est GFR ( Amer) Est GFR (Non-Af Amer) Random Glucose Fasting Glucose 106 Calcium Total Bilirubin AST ALT Alkaline Phosphatase Total Protein Albumin Globulin Albumin/Globulin Ratio Triglycerides 102 Cholesterol 199 LDL Cholesterol Direct 129 HDL Cholesterol 40 TSH 3rd Generation 1.04 Urine Color Urine Appearance Urine pH Ur Specific [place] Urine Protein Urine Glucose (UA) Urine Ketones Urine Blood Urine Nitrate Urine Bilirubin Urine Urobilinogen Ur Leukocyte Esterase Urine RBC Urine WBC Ur Epithelial Cells Salicylates Urine Opiates Screen Urine Methadone Screen Acetaminophen Ur Barbiturates Screen Ur Phencyclidine Scrn Ur Amphetamines Screen U Benzodiazepines Scrn U Oth Cocaine Metabols U Cannabinoids Screen Alcohol, Quantitative - Tobacco Cessation Tobacco Use Status for the last 30 days: Non User Tobacco Use Treatment Practical Counseling Provided: No Reason for not providing: Patient does not smoke tobacco Tobacco Use Treatment FDA-Approved Cessation Medication Provided: No
--- NOTE | 2018-02-23 05:23 | PN ---
DATE: 02/22/[address] Norris. Chart reviewed. The patient is a 42-year-old male with a history of schizophrenia. The patient had a prior psychiatric hospitalization at [facility] in 08/2016. He does not have a reported history of suicidality, but appears to be noncompliant. He has had a history of recent aggression towards his mother and then brought himself to the emergency room after this fear he would hurt her further. He reportedly had been getting increasingly irritated and argumentative and impatient that he feels his mother keeps bringing up the same issues repeatedly. The patient denies depression or psychotic ideation. He has been under psychiatric care and has been maintained on 10 mg Abilify daily but to the emergency room indicated he was noncompliant since having been discharged from [facility]. He reportedly has 4-5 prior psychiatric hospitalizations, most recently 08/2016 at [facility] [place]. At that time he had been brought in by police after his mother called because of his aggressive domestic behavior. He has been maintained on Risperdal and Zyprexa in the past. Denies history of substance abuse. Chart was reviewed. His laboratory values were reviewed. Nursing reports that he has improved. He is alert, oriented to three spheres, but is guarded and evasive with concrete thinking and at times thought blocking. His insight and judgment are considered to be poor. He is presently being maintained on Abilify 10 mg at bedtime and trazodone 50 mg at bedtime. Homar Epstein MD/ PhD
--- NOTE | 2018-02-23 16:46 | PCM.PYCHPN ---
Psychiatric Progress Note - Psychiatric Progress Note Patient seen today, length of contact: 30 minutes Patient Chief Complaint: "it was only one time when I heard high pitch voice on the ship" Problems Identified/Issues Discussed: Suicide/ homicide prevention, past psychiatric h/o, current psychiatric symptoms, medical problems, risk/benefits and alternatives of medications, medications compliance, coping strategies, substance abuse h/o, relapse prevention, importance of follow up with psychiatrist and therapist, discharge plan. Medical Problems: please see HPI Diagnostic Results: 02/20/18 21:10 02/20/18 21:10 Lab Results 02/21/18 07:00: RPR Nonreactive 02/21/18 07:00: TSH 3rd Generation 1.04 02/21/18 07:00: Fasting Glucose 106, Triglycerides 102, Cholesterol 199, LDL Cholesterol Direct 129, HDL Cholesterol 40 02/20/18 21:10: Alcohol, Quantitative < 10 02/20/18 21:10: Salicylates < 1 L, Acetaminophen < 10.0 L 02/20/18 21:10: Sodium 141, Potassium 3.5 L, Chloride 104, Carbon Dioxide 27, Anion Gap 14, BUN 14, Creatinine 0.9, Est GFR ( Amer) > 60, Est GFR (Non- Af Amer) > 60, Random Glucose 105, Calcium 9.4, Total Bilirubin 0.3, AST 46, ALT 54, Alkaline Phosphatase 59, Total Protein 7.3, Albumin 4.3, Globulin 3.1, Albumin/Globulin Ratio 1.4 02/20/18 21:10: WBC 8.9, RBC 4.84, Hgb 15.0, Hct 45.9, MCV 94.8, MCH 31.0, MCHC 32.7, RDW 12.9, Plt Count 264, MPV 11.1 H, Gran % 54.9, Lymph % (Auto) 30.8, [place] % (Auto) 7.6 H, Eos % (Auto) 6.6 H, Baso % (Auto) 0.1, Gran # 4.87, Lymph # (Auto) 2.7, [place] # (Auto) 0.7 H, Eos # (Auto) 0.6, Baso # (Auto) 0.01 02/20/18 21:03: Urine Opiates Screen Negative, Urine Methadone Screen Negative, Ur Barbiturates Screen Negative, Ur Phencyclidine Scrn Negative, Ur Amphetamines Screen Negative, U Benzodiazepines Scrn Negative, U Oth Cocaine Metabols Negati ve, U Cannabinoids Screen Negative 02/20/18 21:03: Urine Color yellow, Urine Appearance Clear, Urine pH 6.5, Ur Specific [place] 1.020, Urine Protein Negative, Urine Glucose (UA) Negative, Urine Ketones Negative, Urine Blood Trace-intact H, Urine Nitrate Negative, Urine Bilirubin Negative, Urine Urobilinogen 1.0 H, Ur Leukocyte Esterase Negative, Urine RBC 5 - 10, Urine WBC 5 - 10, Ur Epithelial Cells 4 - 5 Vital Signs Temp Pulse Resp BP Pulse Ox 02/23/18 07:31 97.9 F 109 H 20 106/75 02/22/18 15:00 86 138/92 H 02/22/18 07:04 98.0 F 72 20 103/54 L 02/22/18 07:00 98.0 F 72 18 103/54 L 02/21/18 16:00 89 119/76 02/21/18 07:41 98.3 F 83 20 127/79 02/21/18 01:53 20 02/21/18 00:14 98 H 16 124/71 100 02/20/18 21:10 98.4 F 116 H 18 135/84 100 DSM 5 Symptoms Update: as per Dr. Joseph's assessment: Patient is a 42-year-old [place] male with a history of schizophrenia, prior psychiatric admission at [facility] in 08/2016, no history of suicide attempts, likely noncompliance with medications, hx of aggression toward his mother in the past who brought himself to the ER for help because he feared that he would hurt his mother. Patient reported that he has been getting increasingly irritated, bcek and argumentative with his mother. He is annoyed that she keeps bringing up the same issues over and over again. Patient had thoughts of assaulting his mother however went to the hospital instead to obtain help so that "things would not escalate". patient was seen at the treatment team meeting, patient is oddly related, poor and unreliable historian, patient presented to be disorganized in his thoughts and statements, but no agitation or aggression, flat affect, irritability obvious. Patient reported that he sees psychiatrist Dr. Wyatt at [place], pt's med list was obtained: christian called for several vitamin D3 2000 unit daily filled in 02/15/2018 Cyanocobalamin 500 mg twice a day filled in 02/15/2018 Abilify 20 mg half to the tablet bedtime for mood disorder filled in january 11, 2018 most likely patient was noncompliant with the medication Benztropine 0.5 mg twice a day for tremor and rigidity field in January 06 Patient reports he has been taking Abilify at this dose for the last 30 days however this conflicts with ER reports in which patient reported noncompliance with medications since his discharge from [facility]. as per staff patient is compliant with the medications, no aggression or agitation, patient reported history of aggression, patient reported he kicked the wall before coming to the hospital, denied any injuries. discussed Basis 32 with patient pt wants to address "sexual preoccupation" on the Basis 32 form, when was asked to clarify pt replied by stating he was locked in an out house while living in the [facility] [place], then pt said "I have a girlfriend." PT presented with disorganized and concrete thought process. DSM 5 Diagnosis: Schizophrenia Medication Change: Yes (resumed) Medical Record Reviewed: Yes Consults ordered or reviewed: medical consult appreciated in ED Mental Status Examination - Cognitive Function Orientation: Person, Place, Situation Memory: Impaired Attention: Poor Concentration: Poor Association: Loose Fund of Knowledge: Poor - Mood Mood: Anxious - Affect Affect: Constricted - Speech Speech: Appropriate (poverty of speech) - Formal Thought Process Formal Thought Process: Other (concrete, disorganized) - Suicidal Ideation Suicidal Ideation: No - Homicidal Ideation Homicidal Ideation: No Goal/Treatment Plan - Goal/Treatment Plan Need for Continued Stay: Remain at risks for inpatient hospitalization, Severe depression anxiety, Discharge may exacerbated symptoms, Severe functional impairment Progress Toward Problem(s) and Goals/Treatment Plan: Milieu/structure/supportive therapy Medical eval in ED, appreciated SW consultation for discharge plan and social issues Med management confirmed meds with pt's pharmacy, * Abilify 10 mg HS for mood and impulse control * Trazodone 50 mg HS to help with sleep/mood * Depakote 250 twice a day for mood stabilization Family involvement, patient gave consent for collateral information from mother Follow up on labs Will monitor closely Pt was educated about risk/benefits and alternatives of medications, coping strategies (safety plan, suicide prevention), relapse prevention, importance of follow up with psychiatrist and therapist, stay away from drugs/alcohol/smoking Estimated Date of D/C: 03/03/18
[2018-02-24] MEDS: Divalproex 250 mg DR (BID formulation) PO SCH ×2 (09:13→15:07)
--- NOTE | 2018-02-24 16:27 | PCM.PYCHPN ---
Psychiatric Progress Note - Psychiatric Progress Note Patient seen today, length of contact: 30 minutes Patient Chief Complaint: "it was only one time when I heard high pitch voice on the ship, I am fine now" Problems Identified/Issues Discussed: Suicide/ homicide prevention, past psychiatric h/o, current psychiatric symptoms, medical problems, risk/benefits and alternatives of medications, medications compliance, coping strategies, substance abuse h/o, relapse preventi on, importance of follow up with psychiatrist and therapist, discharge plan. Medical Problems: please see HPI Diagnostic Results: 02/20/18 21:10 02/20/18 21:10 Lab Results 02/21/18 07:00: RPR Nonreactive 02/21/18 07:00: TSH 3rd Generation 1.04 02/21/18 07:00: Fasting Glucose 106, Triglycerides 102, Cholesterol 199, LDL Cholesterol Direct 129, HDL Cholesterol 40 02/20/18 21:10: Alcohol, Quantitative < 10 02/20/18 21:10: Salicylates < 1 L, Acetaminophen < 10.0 L 02/20/18 21:10: Sodium 141, Potassium 3.5 L, Chloride 104, Carbon Dioxide 27, Anion Gap 14, BUN 14, Creatinine 0.9, Est GFR ( Amer) > 60, Est GFR (Non- Af Amer) > 60, Random Glucose 105, Calcium 9.4, Total Bilirubin 0.3, AST 46, ALT 54, Alkaline Phosphatase 59, Total Protein 7.3, Albumin 4.3, Globulin 3.1, Albumin/Globulin Ratio 1.4 02/20/18 21:10: WBC 8.9, RBC 4.84, Hgb 15.0, Hct 45.9, MCV 94.8, MCH 31.0, MCHC 32.7, RDW 12.9, Plt Count 264, MPV 11.1 H, Gran % 54.9, Lymph % (Auto) 30.8, [place] % (Auto) 7.6 H, Eos % (Auto) 6.6 H, Baso % (Auto) 0.1, Gran # 4.87, Lymph # (Auto) 2.7, [place] # (Auto) 0.7 H, Eos # (Auto) 0.6, Baso # (Auto) 0.01 02/20/18 21:03: Urine Opiates Screen Negative, Urine Methadone Screen Negative, Ur Barbiturates Screen Negative, Ur Phencyclidine Scrn Negative, Ur Amphetamines Screen Negative, U Benzodiazepines Scrn Negative, U Oth Cocaine Metabols Negative, U Cannabinoids Screen Negative 02/20/18 21:03: Urine Color yellow, Urine Appearance Clear, Urine pH 6.5, Ur Specific [place] 1.020, Urine Protein Negative, Urine Glucose (UA) Negative, Urine Ketones Negative, Urine Blood Trace-intact H, Urine Nitrate Negative, Urine Bilirubin Negative, Urine Urobilinogen 1.0 H, Ur Leukocyte Esterase Negative, Urine RBC 5 - 10, Urine WBC 5 - 10, Ur Epithelial Cells 4 - 5 Vital Signs Temp Pulse Resp BP Pulse Ox 02/23/18 07:31 97.9 F 109 H 20 106/75 02/22/18 15:00 86 138/92 H 02/22/18 07:04 98.0 F 72 20 103/54 L 02/22/18 07:00 98.0 F 72 18 103/54 L 02/21/18 16:00 89 119/76 02/21/18 07:41 98.3 F 83 20 127/79 02/21/18 01:53 20 02/21/18 00:14 98 H 16 124/71 100 02/20/18 21:10 98.4 F 116 H 18 135/84 100 DSM 5 Symptoms Update: Patient is a 42-year-old [place] male with a history of schizophrenia, prior psychiatric admission at [facility] in 08/2016, no history of suicide attempts, likely noncompliance with medications, hx of aggression toward his mother in the past who brought himself to the ER for help because he feared that he would hurt his mother. Patient reported that he has been getting increasingly irritated, beck and argumentative with his mother. He is annoyed that she keeps bringing up the same issues over and over again. Patient had thoughts of assaulting his mother however went to the hospital inst ead to obtain help so that "things would not escalate". patient was seen in his room today, patient is oddly related, poor and unreliable historian, patient presented to be disorganized in his thoughts and statements, but no agitation or aggression, flat affect, irritability obvious. Patient he agreed to increase the dose of Abilify. as per staff patient is compliant with the medications, no aggression or agitation, patient reported history of aggression, patient reported he kicked the wall before coming to the hospital, denied any injuries. so far patient tolerates medications well, no side effects observed or reported, aims 0, no EPS. DSM 5 Diagnosis: Schizophrenia Medication Change: Yes (Abilify increased) Medical Record Reviewed: Yes Consults ordered or reviewed: medical consult appreciated in ED Mental Status Examination - Cognitive Function Orientation: Person, Place, Situation Memory: Impaired Attention: Poor Concentration: Poor Association: Loose Fund of Knowledge: Poor - Mood Mood: Anxious - Affect Affect: Constricted - Speech Speech: Appropriate (poverty of speech) - Formal Thought Process Formal Thought Process: Other (concrete, disorganized) - Suicidal Ideation Suicidal Ideation: No - Homicidal Ideation Homicidal Ideation: No Goal/Treatment Plan - Goal/Treatment Plan Need for Continued Stay: Remain at risks for inpatient hospitalization, Severe depression anxiety, Discharge may exacerbated symptoms, Severe functional impairment Progress Toward Problem(s) and Goals/Treatment Plan: Milieu/structure/supportive therapy Medical eval in ED, appreciated SW consultation for discharge plan and social issues Med management confirmed meds with pt's pharmacy, * Abilify 10 mg AMHS for mood and impulse control * Trazodone 50 mg HS to help with sleep/mood * Depakote 250 twice a day for mood stabilization Family involvement, patient gave consent for collateral information from mother Follow up on labs Will monitor closely Pt was educated about risk/benefits and alternatives of medications, coping strategies (safety plan, suicide prevention), relapse prevention, importance of follow up with psychiatrist and therapist, stay away from drugs/alcohol/smoking Estimated Date of D/C: 03/03/18
[2018-02-25] MEDS: Divalproex 250 mg DR (BID formulation) PO SCH ×2 (09:25→16:58)
--- NOTE | 2018-02-25 10:18 | PCM.PYCHPN ---
Psychiatric Progress Note - Psychiatric Progress Note Patient seen today, length of contact: 30 minutes Problems Identified/Issues Discussed: Patient is a 42-year-old [place] male with a history of schizophrenia, prior psychiatric admission at [facility] in 08/2016, no history of suicide attempts, likely noncompliance with medications, hx of aggression toward his mother in the past who brought himself to the ER for help because he feared that he would hurt his mother. Patient reported that he has been getting increasingly irritated, beck and argumentative with his mother. He is annoyed that she keeps bringing up the same issues over and over again. Patient had thoughts of assaulting his mother however went to the hospital instead to obtain help so that "things would not escalate". Patient is familiar to me from our prior admission interview x4 days ago. He remembers me from this meeting. He seems better since the last time I saw him. More related, engaged and reactive though still oddly related. Thought process remains scattered and preoccupied but he doesn't seem to be responding to internal stimuli. Patient denies hallucinations, SI or HI. Patient reports that his mood is "neutral" and he feels that he's "doing good". Eating and sleeping well in general. Patient has been tolerating his medications, including recent increase of abilify. Denies any new discomfort or pain. Seems a little friendlier today but still aloof. He has been irritable with staff, at times reluctant with his medication however there have been no behavioral issues thus far. Diagnostic Results: Schizophrenia Medication Change: No ( ) Medical Record Reviewed: Yes Mental Status Examination - Cognitive Function Orientation: Person, Place, Situation Memory: Impaired Attention: Poor Concentration: Poor Association: Loose Fund of Knowledge: Poor - Mood Mood: Anxious ("feel more neutral now") - Affect Affect: Flat - Speech Speech: Appropriate (poverty of speech) - Formal Thought Process Formal Thought Process: No Impairment (Denies AVH however appears preoccupied, mildly irritable), Other (concrete, disorganized) - Suicidal Ideation Suicidal Ideation: No - Homicidal Ideation Homicidal Ideation: No Goal/Treatment Plan - Goal/Treatment Plan Need for Continued Stay: Remain at risks for inpatient hospitalization, Severe depression anxiety, Discharge may exacerbated symptoms, Severe functional impairment Progress Toward Problem(s) and Goals/Treatment Plan: * c/w current tx and plan * Vitals reviewed and noted below: Selected Entries 02/24/18 02/24/18 07:46 16:00 Temperature 98.0 F Pulse Rate 93 H 90 Respiratory 20 Rate Blood Pressure 116/67 117/80 * Admission labs noted below, no new weekend lab results noted thus far: Laboratory Tests 02/20/18 02/20/18 02/20/18 21:03 21:03 21:10 WBC 8.9 RBC 4.84 Hgb 15.0 Hct 45.9 MCV 94.8 MCH 31.0 MCHC 32.7 RDW 12.9 Plt Count 264 MPV 11.1 H Gran % 54.9 Lymph % (Auto) 30.8 [place] % (Auto) 7.6 H Eos % (Auto) 6.6 H Baso % (Auto) 0.1 Gran # 4.87 Lymph # (Auto) 2.7 [place] # (Auto) 0.7 H Eos # (Auto) 0.6 Baso # (Auto) 0.01 Sodium Potassium Chloride Carbon Dioxide Anion Gap BUN Creatinine Est GFR ( Amer) Est GFR (Non-Af Amer) Random Glucose Fasting Glucose Calcium Total Bilirubin AST ALT Alkaline Phosphatase Total Protein Albumin Globulin Albumin/Globulin Ratio Triglycerides Cholesterol LDL Cholesterol Direct HDL Cholesterol TSH 3rd Generation Urine Color yellow Urine Appearance Clear Urine pH 6.5 Ur Specific [place] 1.020 Urine Protein Negative Urine Glucose (UA) Negative Urine Ketones Negative Urine Blood Trace-intact H Urine Nitrate Negative Urine Bilirubin Negative Urine Urobilinogen 1.0 H Ur Leukocyte Esterase Negative Urine RBC 5 - 10 Urine WBC 5 - 10 Ur Epithelial Cells 4 - 5 Salicylates Urine Opiates Screen Negative Urine Methadone Screen Negative Acetaminophen Ur Barbiturates Screen Negative Ur Phencyclidine Scrn Negative Ur Amphetamines Screen Negative U Benzodiazepines Scrn Negative U Oth Cocaine Metabols Negative U Cannabinoids Screen Negative Alcohol, Quantitative 02/20/18 02/20/18 02/20/18 21:10 21:10 21:10 WBC RBC Hgb Hct MCV MCH MCHC RDW Plt Count MPV Gran % Lymph % (Auto) [place] % (Auto) Eos % (Auto) Baso % (Auto) Gran # Lymph # (Auto) [place] # (Auto) Eos # (Auto) Baso # (Auto) Sodium 141 Potassium 3.5 L Chloride 104 Carbon Dioxide 27 Anion Gap 14 BUN 14 Creatinine 0.9 Est GFR ( Amer) > 60 Est GFR (Non-Af Amer) > 60 Random Glucose 105 Fasting Glucose Calcium 9.4 Total Bilirubin 0.3 AST 46 ALT 54 Alkaline Phosphatase 59 Total Protein 7.3 Albumin 4.3 Globulin 3.1 Albumin/Globulin Ratio 1.4 Triglycerides Cholesterol LDL Cholesterol Direct HDL Cholesterol TSH 3rd Generation Urine Color Urine Appearance Urine pH Ur Specific [place] Urine Protein Urine Glucose (UA) Urine Ketones Urine Blood Urine Nitrate Urine Bilirubin Urine Urobilinogen Ur Leukocyte Esterase Urine RBC Urine WBC Ur Epithelial Cells Salicylates < 1 L Urine Opiates Screen Urine Methadone Screen Acetaminophen < 10.0 L Ur Barbiturates Screen Ur Phencyclidine Scrn Ur Amphetamines Screen U Benzodiazepines Scrn U Oth Cocaine Metabols U Cannabinoids Screen Alcohol, Quantitative < 10 02/21/18 02/21/18 07:00 07:00 WBC RBC Hgb Hct MCV MCH MCHC RDW Plt Count MPV Gran % Lymph % (Auto) [place] % (Auto) Eos % (Auto) Baso % (Auto) Gran # Lymph # (Auto) [place] # (Auto) Eos # (Auto) Baso # (Auto) Sodium Potassium Chloride Carbon Dioxide Anion Gap BUN Creatinine Est GFR ( Amer) Est GFR (Non-Af Amer) Random Glucose Fasting Glucose 106 Calcium Total Bilirubin AST ALT Alkaline Phosphatase Total Protein Albumin Globulin Albumin/Globulin Ratio Triglycerides 102 Cholesterol 199 LDL Cholesterol Direct 129 HDL Cholesterol 40 TSH 3rd Generation 1.04 Urine Color Urine Appearance Urine pH Ur Specific [place] Urine Protein Urine Glucose (UA) Urine Ketones Urine Blood Urine Nitrate Urine Bilirubin Urine Urobilinogen Ur Leukocyte Esterase Urine RBC Urine WBC Ur Epithelial Cells Salicylates Urine Opiates Screen Urine Methadone Screen Acetaminophen Ur Barbiturates Screen Ur Phencyclidine Scrn Ur Amphetamines Screen U Benzodiazepines Scrn U Oth Cocaine Metabols U Cannabinoids Screen Alcohol, Quantitative Estimated Date of D/C: 03/03/18
[2018-02-26] MEDS: Divalproex 250 mg DR (BID formulation) PO SCH ×2 (09:01→17:14)
--- NOTE | 2018-02-26 10:15 | PCM.PYCHPN ---
Psychiatric Progress Note - Psychiatric Progress Note Patient seen today, length of contact: 30 minutes Problems Identified/Issues Discussed: Patient is a 42-year-old [place] male with a history of schizophrenia, prior psychiatric admission at [facility] in 08/2016, no history of suicide attempts, likely noncompliance with medications, hx of aggression toward his mother in the past who brought himself to the ER for help because he feared that he would hurt his mother. Patient reported that he has been getting increasingly irritated, beck and argumentative with his mother. He is annoyed that she keeps bringing up the same issues over and over again. Patient had thoughts of assaulting his mother however went to the hospital instead to obtain help so that "things would not escalate". Patient is familiar to me from our prior admission interview x5 days ago. He remembers me from this meeting. He seems better since the last time I saw him. More related, engaged and reactive though still oddly and blunt. Thought process remains scattered and preoccupied but he doesn't appear to be responding to internal stimuli. Patient denies hallucinations, SI or HI. Patient reports that his mood is "neutral" and he feels that he's "doing good". Eating and sleeping well in general. Patient has been tolerating his medications, including recent increase of abilify. Denies any new discomfort or pain. Seems a little friendlier this weekend but still aloof. He has been irritable with staff and still keeps to himself. At times he is reluctant with his medication however there have been no behavioral or compliance issues thus far this weekend. Diagnostic Results: Schizophrenia Medication Change: No ( ) Medical Record Reviewed: Yes Mental Status Examination - Cognitive Function Orientation: Person, Place, Situation Memory: Impaired Attention: Poor Concentration: Poor Association: Loose Fund of Knowledge: Poor - Mood Mood: Anxious ("feel more neutral now") - Affect Affect: Flat - Speech Speech: Appropriate (poverty of speech) - Formal Thought Process Formal Thought Process: No Impairment (Denies AVH however appears preoccupied, mildly irritable), Other (concrete, disorganized) - Suicidal Ideation Suicidal Ideation: No - Homicidal Ideation Homicidal Ideation: No Goal/Treatment Plan - Goal/Treatment Plan Need for Continued Stay: Remain at risks for inpatient hospitalization, Severe depression anxiety, Discharge may exacerbated symptoms, Severe functional impairment Progress Toward Problem(s) and Goals/Treatment Plan: * c/w current tx and plan * Vitals reviewed and noted below: Selected Entries 02/25/18 02/25/18 06:58 20:40 Temperature 97.8 F Pulse Rate 82 86 Respiratory 20 Rate Blood Pressure 94/62 L 104/59 L * Admission labs noted below, no new weekend lab results noted thus far: Laboratory Tests 02/20/18 02/20/18 02/20/18 21:03 21:03 21:10 WBC 8.9 RBC 4.84 Hgb 15.0 Hct 45.9 MCV 94.8 MCH 31.0 MCHC 32.7 RDW 12.9 Plt Count 264 MPV 11.1 H Gran % 54.9 Lymph % (Auto) 30.8 [place] % (Auto) 7.6 H Eos % (Auto) 6.6 H Baso % (Auto) 0.1 Gran # 4.87 Lymph # (Auto) 2.7 [place] # (Auto) 0.7 H Eos # (Auto) 0.6 Baso # (Auto) 0.01 Sodium Potassium Chloride Carbon Dioxide Anion Gap BUN Creatinine Est GFR ( Amer) Est GFR (Non-Af Amer) Random Glucose Fasting Glucose Calcium Total Bilirubin AST ALT Alkaline Phosphatase Total Protein Albumin Globulin Albumin/Globulin Ratio Triglycerides Cholesterol LDL Cholesterol Direct HDL Cholesterol TSH 3rd Generation Urine Color yellow Urine Appearance Clear Urine pH 6.5 Ur Specific [place] 1.020 Urine Protein Negative Urine Glucose (UA) Negative Urine Ketones Negative Urine Blood Trace-intact H Urine Nitrate Negative Urine Bilirubin Negative Urine Urobilinogen 1.0 H Ur Leukocyte Esterase Negative Urine RBC 5 - 10 Urine WBC 5 - 10 Ur Epithelial Cells 4 - 5 Salicylates Urine Opiates Screen Negative Urine Methadone Screen Negative Acetaminophen Ur Barbiturates Screen Negative Ur Phencyclidine Scrn Negative Ur Amphetamines Screen Negative U Benzodiazepines Scrn Negative U Oth Cocaine Metabols Negative U Cannabinoids Screen Negative Alcohol, Quantitative 02/20/18 02/20/18 02/20/18 21:10 21:10 21:10 WBC RBC Hgb Hct MCV MCH MCHC RDW Plt Count MPV Gran % Lymph % (Auto) [place] % (Auto) Eos % (Auto) Baso % (Auto) Gran # Lymph # (Auto) [place] # (Auto) Eos # (Auto) Baso # (Auto) Sodium 141 Potassium 3.5 L Chloride 104 Carbon Dioxide 27 Anion Gap 14 BUN 14 Creatinine 0.9 Est GFR ( Amer) > 60 Est GFR (Non-Af Amer) > 60 Random Glucose 105 Fasting Glucose Calcium 9.4 Total Bilirubin 0.3 AST 46 ALT 54 Alkaline Phosphatase 59 Total Protein 7.3 Albumin 4.3 Globulin 3.1 Albumin/Globulin Ratio 1.4 Triglycerides Cholesterol LDL Cholesterol Direct HDL Cholesterol TSH 3rd Generation Urine Color Urine Appearance Urine pH Ur Specific [place] Urine Protein Urine Glucose (UA) Urine Ketones Urine Blood Urine Nitrate Urine Bilirubin Urine Urobilinogen Ur Leukocyte Esterase Urine RBC Urine WBC Ur Epithelial Cells Salicylates < 1 L Urine Opiates Screen Urine Methadone Screen Acetaminophen < 10.0 L Ur Barbiturates Screen Ur Phencyclidine Scrn Ur Amphetamines Screen U Benzodiazepines Scrn U Oth Cocaine Metabols U Cannabinoids Screen Alcohol, Quantitative < 10 02/21/18 02/21/18 07:00 07:00 WBC RBC Hgb Hct MCV MCH MCHC RDW Plt Count MPV Gran % Lymph % (Auto) [place] % (Auto) Eos % (Auto) Baso % (Auto) Gran # Lymph # (Auto) [place] # (Auto) Eos # (Auto) Baso # (Auto) Sodium Potassium Chloride Carbon Dioxide Anion Gap BUN Creatinine Est GFR ( Amer) Est GFR (Non-Af Amer) Random Glucose Fasting Glucose 106 Calcium Total Bilirubin AST ALT Alkaline Phosphatase Total Protein Albumin Globulin Albumin/Globulin Ratio Triglycerides 102 Cholesterol 199 LDL Cholesterol Direct 129 HDL Cholesterol 40 TSH 3rd Generation 1.04 Urine Color Urine Appearance Urine pH Ur Specific [place] Urine Protein Urine Glucose (UA) Urine Ketones Urine Blood Urine Nitrate Urine Bilirubin Urine Urobilinogen Ur Leukocyte Esterase Urine RBC Urine WBC Ur Epithelial Cells Salicylates Urine Opiates Screen Urine Methadone Screen Acetaminophen Ur Barbiturates Screen Ur Phencyclidine Scrn Ur Amphetamines Screen U Benzodiazepines Scrn U Oth Cocaine Metabols U Cannabinoids Screen Alcohol, Quantitative Estimated Date of D/C: 03/03/18
[2018-02-27] MEDS: Divalproex 250 mg DR (BID formulation) PO SCH ×3 (09:07→21:50)
--- NOTE | 2018-02-27 15:04 | PCM.PYCHPN ---
Psychiatric Progress Note - Psychiatric Progress Note Patient seen today, length of contact: 30 minutes Patient Chief Complaint: "I came here because of the problems in my house, now I am fine" Problems Identified/Issues Discussed: Suicide/ homicide prevention, past psychiatric h/o, current psychiatric symptoms, medical problems, risk/benefits and alternatives of medications, medications compliance, coping strategies, substance abuse h/o, relapse prevention, importance of follow up with psychiatrist and therapist, discharge plan. Medical Problems: please see HPI Diagnostic Results: 02/20/18 21:10 02/20/18 21:10 Lab Results 02/21/18 07:00: RPR Nonreactive 02/21/18 07:00: TSH 3rd Generation 1.04 02/21/18 07:00: Fasting Glucose 106, Triglycerides 102, Cholesterol 199, LDL Cholesterol Direct 129, HDL Cholesterol 40 02/20/18 21:10: Alcohol, Quantitative < 10 02/20/18 21:10: Salicylates < 1 L, Acetaminophen < 10.0 L 02/20/18 21:10: Sodium 141, Potassium 3.5 L, Chloride 104, Carbon Dioxide 27, Anion Gap 14, BUN 14, Creatinine 0.9, Est GFR ( Amer) > 60, Est GFR (Non- Af Amer) > 60, Random Glucose 105, Calcium 9.4, Total Bilirubin 0.3, AST 46, ALT 54, Alkaline Phosphatase 59, Total Protein 7.3, Albumin 4.3, Globulin 3.1, Albumin/Globulin Ratio 1.4 02/20/18 21:10: WBC 8.9, RBC 4.84, Hgb 15.0, Hct 45.9, MCV 94.8, MCH 31.0, MCHC 32.7, RDW 12.9, Plt Count 264, MPV 11.1 H, Gran % 54.9, Lymph % (Auto) 30.8, [place] % (Auto) 7.6 H, Eos % (Auto) 6.6 H, Baso % (Auto) 0.1, Gran # 4.87, Lymph # (Auto) 2.7, [place] # (Auto) 0.7 H, Eos # (Auto) 0.6, Baso # (Auto) 0.01 02/20/18 21:03: Urine Opiates Screen Negative, Urine Methadone Screen Negative, Ur Barbiturates Screen Negative, Ur Phencyclidine Scrn Negative, Ur Amphetamines Screen Negative, U Benzodiazepines Scrn Negative, U Oth Cocaine Metabols Negativ e, U Cannabinoids Screen Negative 02/20/18 21:03: Urine Color yellow, Urine Appearance Clear, Urine pH 6.5, Ur Specific [place] 1.020, Urine Protein Negative, Urine Glucose (UA) Negative, Urine Ketones Negative, Urine Blood Trace-intact H, Urine Nitrate Negative, Urine Bilirubin Negative, Urine Urobilinogen 1.0 H, Ur Leukocyte Esterase Negative, Urine RBC 5 - 10, Urine WBC 5 - 10, Ur Epithelial Cells 4 - 5 Vital Signs Temp Pulse Resp BP Pulse Ox 02/23/18 07:31 97.9 F 109 H 20 106/75 02/22/18 15:00 86 138/92 H 02/22/18 07:04 98.0 F 72 20 103/54 L 02/22/18 07:00 98.0 F 72 18 103/54 L 02/21/18 16:00 89 119/76 02/21/18 07:41 98.3 F 83 20 127/79 02/21/18 01:53 20 02/21/18 00:14 98 H 16 124/71 100 02/20/18 21:10 98.4 F 116 H 18 135/84 100 Temp Pulse Resp BP Pulse Ox 98.3 F 86 20 100/60 100 02/27/18 07:22 02/27/18 07:22 02/27/18 07:22 02/27/18 07:22 02/21/18 00:14 DSM 5 Symptoms Update: Patient is a 42-year-old [place] male with a history of schiz ophrenia, prior psychiatric admission at [facility] in 08/2016, no history of suicide attempts, likely noncompliance with medications, hx of aggression toward his mother in the past who brought himself to the ER for help because he feared that he would hurt his mother. Patient reported that he has been getting increasingly irritated, beck and argumentative with his mother. He is annoyed that she keeps bringing up the same issues over and over again. Patient had thoughts of assaulting his mother however went to the hospital instead to obtain help so that "things would not escalate". patient was at the hallway, patient is oddly related, poor and unreliable historian, patient presented to be disorganized in his thoughts and statements, but no agitation or aggression, affect was brighter, less irritable. Agree with , thought process remains scattered and preoccupied but he d oesn't appear to be responding to internal stimuli. Patient denies hallucinations, SI or HI. Eating and sleeping well in general. over the weekend no acute issues. so far patient tolerates medications well, no side effects observed or reported, aims 0, no EPS. DSM 5 Diagnosis: Schizophrenia Medication Change: Yes (depakote increased) Medical Record Reviewed: Yes Consults ordered or reviewed: medical consult appreciated in ED Mental Status Examination - Cognitive Function Orientation: Person, Place, Situation Memory: Impaired Attention: Poor Concentration: Poor Association: Loose Fund of Knowledge: Poor - Mood Mood: Anxious ("I am fine") - Affect Affect: Flat - Speech Speech: Appropriate (poverty of speech) - Formal Thought Process Formal Thought Process: No Impairment (Denies AVH however appears preoccupied, mildly irritable), Other (concrete, disorganized) - Suicidal Ideation Suicidal Ideation: No - Homicidal Ideation Homicidal Ideation: No Goal/Treatment Plan - Goal/Treatment Plan Need for Continued Stay: Remain at risks for inpatient hospitalization, Severe depression anxiety, Discharge may exacerbated symptoms, Severe functional impairment Progress Toward Problem(s) and Goals/Treatment Plan: Milieu/structure/supportive therapy Medical eval in ED, appreciated SW consultation for discharge plan and social issues Med management confirmed meds with pt's pharmacy, * Abilify 10 mg AMHS for mood and impulse control * Trazodone 50 mg HS to help with sleep/mood * Depakote 250 twice a day and hs for mood stabilization Family involvement, patient gave consent for collateral information from mother Follow up on labs Will monitor closely Pt was educated about risk/benefits and alternatives of medications, coping strategies (safety plan, suicide prevention), relapse prevention, importance of follow up with psychiatrist and therapist, stay away from drugs/alcohol/smoking Estimated Date of D/C: 03/03/18
[2018-02-28] MEDS: Divalproex 250 mg DR (BID formulation) PO SCH ×3 (09:16→21:22)
--- NOTE | 2018-02-28 16:16 | PCM.PYCHPN ---
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 Medical Problems: please see HPI Diagnostic Results: 02/20/18 21:10 02/20/18 21:10 Lab Results 02/21/18 07:00: RPR Nonreactive 02/21/18 07:00: TSH 3rd Generation 1.04 02/21/18 07:00: Fasting Glucose 106, Triglycerides 102, Cholesterol 199, LDL C holesterol Direct 129, HDL Cholesterol 40 02/20/18 21:10: Alcohol, Quantitative < 10 02/20/18 21:10: Salicylates < 1 L, Acetaminophen < 10.0 L 02/20/18 21:10: Sodium 141, Potassium 3.5 L, Chloride 104, Carbon Dioxide 27, Anion Gap 14, BUN 14, Creatinine 0.9, Est GFR ( Amer) > 60, Est GFR (Non- Af Amer) > 60, Random Glucose 105, Calcium 9.4, Total Bilirubin 0.3, AST 46, ALT 54, Alkaline Phosphatase 59, Total Protein 7.3, Albumin 4.3, Globulin 3.1, Albumin/Globulin Ratio 1.4 02/20/18 21:10: WBC 8.9, RBC 4.84, Hgb 15.0, Hct 45.9, MCV 94.8, MCH 31.0, MCHC 32.7, RDW 12.9, Plt Count 264, MPV 11.1 H, Gran % 54.9, Lymph % (Auto) 30.8, [place] % (Auto) 7.6 H, Eos % (Auto) 6.6 H, Baso % (Auto) 0.1, Gran # 4.87, Lymph # (Auto) 2.7, [place] # (Auto) 0.7 H, Eos # (Auto) 0.6, Baso # (Auto) 0.01 02/20/18 21:03: Urine Opiates Screen Negative, Urine Methadone Screen Negative, Ur Barbiturates Screen Negative, Ur Phencyclidine Scrn Negative, Ur Amphetamines Screen Negative, U Benzodiazepines Scrn Negative, U Oth Cocaine Metabols Negative, U Cannabinoids Screen Negative 02/20/18 21:03: Urine Color yellow, Urine Appearance Clear, Urine pH 6.5, Ur Specific [place] 1.020, Urine Protein Negative, Urine Glucose (UA) Negative, Urine Ketones Negative, Urine Blood Trace-intact H, Urine Nitrate Negative, [place] Bilirubin Negative, Urine Urobilinogen 1.0 H, Ur Leukocyte Esterase Negative, Urine RBC 5 - 10, Urine WBC 5 - 10, Ur Epithelial Cells 4 - 5 Vital Signs Temp Pulse Resp BP Pulse Ox 02/23/18 07:31 97.9 F 109 H 20 106/75 02/22/18 15:00 86 138/92 H 02/22/18 07:04 98.0 F 72 20 103/54 L 02/22/18 07:00 98.0 F 72 18 103/54 L 02/21/18 16:00 89 119/76 02/21/18 07:41 98.3 F 83 20 127/79 02/21/18 01:53 20 02/21/18 00:14 98 H 16 124/71 100 02/20/18 21:10 98.4 F 116 H 18 135/84 100 Temp Pulse Resp BP Pulse Ox 98.3 F 86 20 100/60 100 02/27/18 07:22 02/27/18 07:22 02/27/18 07:22 02/27/18 07:22 02/21/18 00:14 DSM 5 Symptoms Update: Patient is a 42-year-old [place] male with a history of schizophrenia, prior psychiatric admission at [facility] in 08/2016, no history of suicide attempts, likely noncompliance with medications, hx of aggression toward his mother in the past who brought himself to the ER for help because he feared that he would hurt his mother. Patient reported that he has been getting increasingly irritated, beck and argumentative with his mother. He is annoyed that she keeps bringing up the same issues over and over again. Patient had thoughts of assaulting his mother however went to the hospital instead to obtain help so that "things would not escalate". 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 Eating and sleeping well in general. SW was advised to contact family for collaterals. so far patient tolerates medications well, no side effects observed or reported, aims 0, no EPS. DSM 5 Diagnosis: Schizophrenia Medication Change: Yes (depakote increased) Medical Record Reviewed: Yes Mental Status Examination - Cognitive Function Orientation: Person, Place, Situation Memory: Impaired Attention: Poor Concentration: Poor Association: Loose Fund of Knowledge: Poor - Mood Mood: Anxious ("I am fine") - Affect Affect: Flat - Speech Speech: Appropriate (poverty of speech) - Formal Thought Process Formal Thought Process: No Impairment (Denies AVH however appears preoccupied, mildly irritable), Other (concrete, disorganized) - Suicidal Ideation Suicidal Ideation: No - Homicidal Ideation Homicidal Ideation: No Goal/Treatment Plan - Goal/Treatment Plan Need for Continued Stay: Remain at risks for inpatient hospitalization, Severe depression anxiety, Discharge may exacerbated symptoms, Severe functional impairment Progress Toward Problem(s) and Goals/Treatment Plan: Milieu/structure/supportive therapy Medical eval in ED, appreciated SW consultation for discharge plan and social issues Med management confirmed meds with pt's pharmacy, * Abilify 10 mg AMHS for mood and impulse control * Trazodone 50 mg HS to help with sleep/mood * Depakote 250 twice a day and hs for mood stabilization Family involvement, patient gave consent for collateral information from mother Follow up on labs Will monitor closely Pt was educated about risk/benefits and alternatives of medications, coping strategies (safety plan, suicide prevention), relapse prevention, importance of follow up with psychiatrist and therapist, stay away from drugs/alcohol/smoking Estimated Date of D/C: 03/03/18
[2018-03-01] MEDS: Divalproex 250 mg DR (BID formulation) PO SCH ×3 (09:01→22:10)
--- NOTE | 2018-03-01 11:57 | PCM.BM ---
<Su York - Last Filed: 03/01/18 11:54> Treatment Plan Problems - Problems identified on initial assessmt AGITATION/AGGRESSIVE BEHAVIOR Date Initiated: 02/21/18 (pt more calmer and no agitation noted) Time Initiated: 02:50 Date resolved: 03/01/18 Assessment reference: NA Status: Active Priority: 1 POOR IMPULSE CONTROL Date Initiated: 02/21/18 (no impulse control observed,family meeting 03/02) Time Initiated: 02:50 Date resolved: 03/01/18 Assessment reference: NA Status: Active Priority: 2 MEDICATION NON ADHERENCE Date Initiated: 02/21/18 (compliant with meds,reinforced teaching,for possible d/c in am) Time Initiated: 02:50 Date resolved: 03/01/18 Assessment reference: NA Status: Active Treatment assets and liabiliti Patient Assests: adapts well, cooperative, motivated, self-reliant, ADL independent, physically healthy, good support system, negotiates basic needs, cognitively intact Patient Liabilities: financial problems, relationship conflicts - Milieu Protocol Maintain good personal hygiene: daily Encourage regular showers, every shift Remind patient to perform daily oral care, every shift Assist patient to perform ADL's Maintain personal safety: every shift Educate patient to report safety concerns to staff, every shift Monitor environment for contraband/sharps Medication safety: Monitor for expected outcome, potential side effects: every shift, Assess barriers to learning: every shift, Assess readiness for medication education: every shift Milieu Narrative: Milieu/structure/supportive therapy Medical eval in ED, appreciated SW consultation for discharge plan and social issues Med management confirmed meds with pt's pharmacy, * Abilify 10 mg AMHS for mood and impulse control * Trazodone 50 mg HS to help with sleep/mood * Depakote 250 twice a day and hs for mood stabilization Family involvement, patient gave consent for collateral information from mother Follow up on labs Will monitor closely Pt was educated about risk/benefits and alternatives of medications, coping strategies (safety plan, suicide prevention), relapse prevention, importance of follow up with psychiatrist and therapist, stay away from drugs/alcohol/smoking Family Contact Family involvement: Family/SO is involved Family contact: Patient agrees to contact - Outside Agency [facility] Care involvment: Not involved Discharge/Continuing Care - Education Needs Education Needs: Patient Medication, Patient Diagnosis/Disease Process, Patient Coping Skills, Patient Anger Management skills, Patient Activities of Daily Living, Patient Health Practices/Safety, Patient Personal Hygiene/Grooming - Discharge Discharge Criteria: Tolerates medication w/o severe side effects, Free of Homicidal thoughts, Free of agitation, Normal sleep pattern - Treatment Team Participation Patient/Family/SO Statement: Milieu/structure/supportive therapy Medical eval in ED, appreciated SW consultation for discharge plan and social issues Med management confirmed meds with pt's pharmacy, * Abilify 10 mg AMHS for mood and impulse control * Trazodone 50 mg HS to help with sleep/mood * Depakote 250 twice a day and hs for mood stabilization Family involvement, patient gave consent for collateral information from mother Follow up on labs Will monitor closely Pt was educated about risk/benefits and alternatives of medications, coping strategies (safety plan, suicide prevention), relapse prevention, importance of follow up with psychiatrist and therapist, stay away from drugs/alcohol/smoking Treatment Plan Review - Problem AGITATION/AGGRESSIVE BEHAVIOR Time Initiated: 02:50 POOR IMPULSE CONTROL Time Initiated: 02:50 MEDICATION NON ADHERENCE Time Initiated: 02:50 <Khalida Norris - Last Filed: 03/01/18 16:19> - Diagnosis (1) Schizophrenia Status: Acute Interventions: 02/21/18 11:54 Abilify 10 mg AMHS for mood and impulse control * Trazodone 50 mg HS to help with sleep/mood * Outreach to mother for further collateral if patient consents family meeting scheduled for tomorrow Patient still psychotic but no agitation or aggression thought process is better organized but still psychotic. Denied suicidal ideations denied homicidal ideation compliant with the treatment and didn't also and regulations.
--- NOTE | 2018-03-01 16:21 | PCM.PYCHPN ---
Psychiatric Progress Note - Psychiatric Progress Note Patient seen today, length of contact: 30 minutes Patient Chief Complaint: "I am feeling fine" Problems Identified/Issues Discussed: Suicide/ homicide prevention, past psychiatric h/o, current psychiatric symptoms, medical problems, risk/benefits and alternatives of medications, medications compliance, coping strategies, substance abuse h/o, relapse prevention, importance of follow up with psychiatrist and therapist, discharge plan. Medical Problems: please see HPI Diagnostic Results: 02/20/18 21:10 02/20/18 21:10 Lab Results 02/21/18 07:00: RPR Nonreactive 02/21/18 07:00: TSH 3rd Generation 1.04 02/21/18 07:00: Fasting Glucose 106, Triglycerides 102, Cholesterol 199, LDL Cholesterol Direct 129, HDL Cholesterol 40 02/20/18 21:10: Alcohol, Quantitative < 10 02/20/18 21:10: Salicylates < 1 L, Acetaminophen < 10.0 L 02/20/18 21:10: Sodium 141, Potassium 3.5 L, Chloride 104, Carbon Dioxide 27, Anion Gap 14, BUN 14, Creatinine 0.9, Est GFR ( Amer) > 60, Est GFR (Non- Af Amer) > 60, Random Glucose 105, Calcium 9.4, Total Bilirubin 0.3, AST 46, ALT 54, Alkaline Phosphatase 59, Total Protein 7.3, Albumin 4.3, Globulin 3.1, Albumin/Globulin Ratio 1.4 02/20/18 21:10: WBC 8.9, RBC 4.84, Hgb 15.0, Hct 45.9, MCV 94.8, MCH 31.0, MCHC 32.7, RDW 12.9, Plt Count 264, MPV 11.1 H, Gran % 54.9, Lymph % (Auto) 30.8, [place] % (Auto) 7.6 H, Eos % (Auto) 6.6 H, Baso % (Auto) 0.1, Gran # 4.87, Lymph # (Auto) 2.7, [place] # (Auto) 0.7 H, Eos # (Auto) 0.6, Baso # (Auto) 0.01 02/20/18 21:03: Urine Opiates Screen Negative, Urine Methadone Screen Negative, Ur Barbiturates Screen Negative, Ur Phencyclidine Scrn Negative, Ur Amphetamines Screen Negative, U Benzodiazepines Scrn Negative, U Oth Cocaine Metabols Negative, U Cannabinoids Screen Negative 02/20/18 21:03: Urine Color yellow, Urine Appearance Clear, Urine pH 6.5, Ur Specific [place] 1.020, Urine Protein Negative, Urine Glucose (UA) Negative, Urine Ketones Negative, Urine Blood Trace-intact H, Urine Nitrate Negative, Urine Bilirubin Negative, Urine Urobilinogen 1.0 H, Ur Leukocyte Esterase Negative, Urine RBC 5 - 10, Urine WBC 5 - 10, Ur Epithelial Cells 4 - 5 Vital Signs Temp Pulse Resp BP Pulse Ox 02/23/18 07:31 97.9 F 109 H 20 106/75 02/22/18 15:00 86 138/92 H 02/22/18 07:04 98.0 F 72 20 103/54 L 02/22/18 07:00 98.0 F 72 18 103/54 L 02/21/18 16:00 89 119/76 02/21/18 07:41 98.3 F 83 20 127/79 02/21/18 01:53 20 02/21/18 00:14 98 H 16 124/71 100 02/20/18 21:10 98.4 F 116 H 18 135/84 100 Temp Pulse Resp BP Pulse Ox 98.3 F 86 20 100/60 100 02/27/18 07:22 02/27/18 07:22 02/27/18 07:22 02/27/18 07:22 02/21/18 00:14 DSM 5 Symptoms Update: Patient is a 42-year-old [place] male with a history of schizophrenia, prior psychiatric admission at [facility] in 08/2016, no history of suicide attempts, likely noncompliance with medications, hx of aggression toward his mother in the past who brought himself to the ER for help because he feared that he would hurt his mother. Patient reported that he has been getting increasingly irritated, beck and argumentative with his mother. He is annoyed that she keeps bringing up the same issues over and over again. Patient had thoughts of assaulting his mother however went to the hospital instead to obtain help so that "things would not escalate". patient was seen at the treatment team meeting, patient is oddly related, poor and unreliable historian, patient presented to be disorganized in his thoughts and statements, but no agitation or aggression, affect was brighter, less irritable. patient agreed to have family meeting with his mother tomorrow. If patient would be found at his baseline by his mother patient would be scheduled for discharge. Eating and sleeping well in general. SW was advised to contact family for collaterals. so far patient tolerates medications well, no side effects observed or reported, aims 0, no EPS. DSM 5 Diagnosis: Schizophrenia Medication Change: No Medical Record Reviewed: Yes Mental Status Examination - Cognitive Function Orientation: Person, Place, Situation Memory: Impaired Attention: Poor Concentration: Poor Association: Loose Fund of Knowledge: Poor - Mood Mood: Anxious ("I am fine") - Affect Affect: Flat - Speech Speech: Appropriate (poverty of speech) - Formal Thought Process Formal Thought Process: No Impairment (Denies AVH however appears preoccupied, mildly irritable), Other (concrete, disorganized) - Suicidal Ideation Suicidal Ideation: No - Homicidal Ideation Homicidal Ideation: No Goal/Treatment Plan - Goal/Treatment Plan Need for Continued Stay: Remain at risks for inpatient hospitalization, Severe depression anxiety, Discharge may exacerbated symptoms, Severe functional impairment Progress Toward Problem(s) and Goals/Treatment Plan: Milieu/structure/supportive therapy Medical eval in ED, appreciated SW consultation for discharge plan and social issues Med management confirmed meds with pt's pharmacy, * Abilify 10 mg AMHS for mood and impulse control * Trazodone 50 mg HS to help with sleep/mood * Depakote 250 twice a day and hs for mood stabilization Family involvement, patient gave consent for collateral information from mother Follow up on labs Will monitor closely Pt was educated about risk/benefits and alternatives of medications, coping strategies (safety plan, suicide prevention), relapse prevention, importance of follow up with psychiatrist and therapist, stay away from drugs/alcohol/smoking Estimated Date of D/C: 03/03/18
[2018-03-02 07:39] VITALS: BP 109/74; PULSE 107; RESP 202; TEMP 98.1
[2018-03-02] MEDS: Divalproex 250 mg DR (BID formulation) PO SCH (08:47)
--- NOTE | 2018-03-02 16:47 | PCM.PYCHDC ---
Mental Status Examination - Mental Status Examination Orientation: Person, Place, Situation, Time Memory: Intact Mood: Neutral Affect: Constricted (Reactive and mood-congruent) Speech: Appropriate Attention: WNL (improved) Concentration: WNL (improved) Association: Loose (baseline with much improvement) Fund of Knowledge: WNL Formal Thought Process: Other (mild disorganization of thought process seems to be baseline) Description of patient's judgement and insight: Pt has improved insight into mental and medical illness, pt was compliant with medications and unit rules and regulations, pt was going to groups, was calm, cooperative, socially appropriate, no behavioral incidents, no agitation, no aggression. Psychotic Thoughts and Behaviors: Pt denied v/a/t hallucinations, denied paranoid ideations, pt does not appear to be psychotic, and thought process is goal directed. Suicidal Ideation: No Current Homicidal Ideation?: No Plan: pt adamantly denied thoughts of harming self or others denied intent or plan. Discharge Summary - Discharge Note Reason for Hospitalization: disorganized thoughts and disorganized behavior Psychiatric History (includes Medical, Family, Personal Hx): istory of schizophrenia Laboratory Data: 02/20/18 21:10 02/20/18 21:10 Lab Results 02/21/18 07:00: RPR Nonreactive 02/21/18 07:00: TSH 3rd Generation 1.04 02/21/18 07:00: Fasting Glucose 106, Triglycerides 102, Cholesterol 199, LDL Cholesterol Direct 129, HDL Cholesterol 40 02/20/18 21:10: Alcohol, Quantitative < 10 02/20/18 21:10: Salicylates < 1 L, Acetaminophen < 10.0 L 02/20/18 21:10: Sodium 141, Potassium 3.5 L, Chloride 104, Carbon Dioxide 27, Anion Gap 14, BUN 14, Creatinine 0.9, Est GFR ( Amer) > 60, Est GFR (Non- Af Amer) > 60, Random Glucose 105, Calcium 9.4, Total Bilirubin 0.3, AST 46, ALT 54, Alkaline Phosphatase 59, Total Protein 7.3, Albumin 4.3, Globulin 3.1, Albumin/Globulin Ratio 1.4 02/20/18 21:10: WBC 8.9, RBC 4.84, Hgb 15.0, Hct 45.9, MCV 94.8, MCH 31.0, MCHC 32.7, RDW 12.9, Plt Count 264, MPV 11.1 H, Gran % 54.9, Lymph % (Auto) 30.8, [place] % (Auto) 7.6 H, Eos % (Auto) 6.6 H, Baso % (Auto) 0.1, Gran # 4.87, Lymph # (Auto) 2.7, Dawson # (Auto) 0.7 H, Eos # (Auto) 0.6, Baso # (Auto) 0.01 02/20/18 21:03: Urine Opiates Screen Negative, Urine Methadone Screen Negative, Ur Barbiturates Screen Negative, Ur Phencyclidine Scrn Negative, Ur Amphetamines Screen Negative, U Benzodiazepines Scrn Negative, U Oth Cocaine Metabols Negative, U Cannabinoids Screen Negative 02/20/18 21:03: Urine Color yellow, Urine Appearance Clear, Urine pH 6.5, Ur Specific [place] 1.020, Urine Protein Negative, Urine Glucose (UA) Negative, Urine Ketones Negative, Urine Blood Trace-intact H, Urine Nitrate Negative, Urine Bilirubin Negative, Urine Urobilinogen 1.0 H, Ur Leukocyte Esterase Negative, Urine RBC 5 - 10, Urine WBC 5 - 10, Ur Epithelial Cells 4 - 5 Vital Signs Temp Pulse Resp BP Pulse Ox 03/02/18 07:38 98.1 F 107 H 202 H 109/74 03/01/18 16:00 117 H 126/79 03/01/18 07:06 97.2 F L 83 20 105/71 02/28/18 16:00 101 H 120/70 02/28/18 07:02 97.8 F 84 20 105/69 02/27/18 15:00 87 99/63 L 02/27/18 07:22 98.3 F 86 20 100/60 02/26/18 15:00 89 20 123/77 02/26/18 07:36 98.3 F 84 20 110/71 02/25/18 20:46 86 02/25/18 20:40 86 104/59 L 02/25/18 06:58 97.8 F 82 20 94/62 L 02/24/18 16:00 90 117/80 02/24/18 07:46 98.0 F 93 H 20 116/67 02/23/18 15:00 91 H 127/84 02/23/18 07:31 97.9 F 109 H 20 106/75 02/22/18 15:00 86 138/92 H 02/22/18 07:04 98.0 F 72 20 103/54 L 02/22/18 07:00 98.0 F 72 18 103/54 L 02/21/18 16:00 89 119/76 02/21/18 07:41 98.3 F 83 20 127/79 02/21/18 01:53 20 02/21/18 00:14 98 H 16 124/71 100 02/20/18 21:10 98.4 F 116 H 18 135/84 100 Consultations:: List each consultation separately and include: 1. Reason for request. 2. Findings. 3. Follow-up Consultations: medical consult appreciated in ED see notes for more detailed information Summary of Hospital Course include:: 1. Description of specific treatment plan utilized for patients during their course of treatmen. 2. Summarize the time-course for resolution of acute symptoms and/or regressed behaviors. 3. Describe issues identified and worked on during hospitalization. 4. Describe medication utilized. 5. Describe medical problems identified and treated. 6. Reassessment of suicide risk Summary of Hospital Course: Patient is a 42-year-old [place] male with a history of schizophrenia, prior psychiatric admission at [facility] in 08/2016, no history of suicide attempts, likely noncompliance with medications, hx of aggression toward his mother in the past who brought himself to the ER for help because he feared that he would hurt his mother. Patient reported that he has been getting increasingly irritated, beck and argumentative with his mother. He is annoyed that she keeps bringing up the same issues over and over again. Patient had thoughts of assaulting his mother however went to the hospital instead to obtain help so that "things would not escalate". at the time of admission patient presented to be oddly related, poor and unreliable historian, patient presented to be disorganized in his thoughts and statements, but no agitation or aggression, flat affect, irritability obvious. please see admission note for more detailed information. patient was stabilized on the following medications: Abilify 10 mg AMHS for mood and impulse control Trazodone 50 mg HS to help with sleep/mood Depakote 500 twice a day for mood stabilization patient tolerated medications well, no side effects observed or reported, aims 0, no EPS. family meeting took place today with his mother, mother presented with concrete thought process seems to have low education level, as per mother patient presented well, patient mother was upset that patient presented there is [place], off note patient had good appetite and ate 100% of his meal through whole admission. Patient did not lose any weight. Patient reported that he has future oriented plans, patient will follow up with his psychiatrist at [facility], patient reported that in case of worsening of his symptoms he will come back to the hospital, patient reported that he wants to go back home, mother was willing to accept patient back home. Overall pt improved significantly, pt's affect became brighter, pt was less depressed, has realistic future oriented plans, pt presented mildlly disorganized seems to be at his baseline. Pt was socially appropriate, no behavioral issues, pts insight improved as well and soon pt deemed to be ready for discharge. At the time of the discharge pt denied been depressed, denied thoughts of harmin g self or others, denied psychotic symptoms, and pt does not appeared to be psychotic, denied been anxious, pt is not in imminent danger to self or others, pt will be f/u with [facility], information about follow up appointment, time and address provided to the pt, it is patient responsibility to follow up with outpatient clinic, PMD as well as specialists (see SW note for more detailed information). In case pt will need to obtain results of studies pending at discharge pt was provided with contact information of Psychiatric Inpatient unit [phone] as well as Medical Record Department [phone]. Naltrexone treatment not indicated at this time. atient is not using drugs, denied smoking, denied alcohol consumption. pt was provided with prescriptions for all of medications (please see medication reconciliation form) Pt was educated about safety plan in case of worsening of symptoms or in case of suicidal or homicidal ideation call 911 or go to the nearest ER, also was educated to take meds as prescribed and stay away from drugs, pt verbalized understanding. - Diagnosis (1) Schizophrenia Status: Chronic Priority: High - Final Diagnosis (DSM 5) Condition upon Discharge: IMPROVED Disposition: HOME/ ROUTINE Follow-up Treatment Plan: At the time of the discharge pt denied been depressed, denied thoughts of harming self or others, denied psychotic symptoms, and pt does not appeared to be psychotic, denied been anxious, pt is not in imminent danger to self or others, pt will be f/u with [facility], information about follow up appointment, time and address provided to the pt, it is patient responsibility to follow up with outpatient clinic, PMD as well as specialists (see SW note for more de tailed information). In case pt will need to obtain results of studies pending at discharge pt was p rovided with contact information of Psychiatric Inpatient unit [phone] as well as Medical Record Department [phone]. Naltrexone treatment not indicated at this time. atient is not using drugs, denied smoking, denied alcohol consumption. pt was provided with prescriptions for all of medications (please see medication reconciliation form) Pt was educated about safety plan in case of worsening of symptoms or in case of suicidal or homicidal ideation call 911 or go to the nearest ER, also was educated to take meds as prescribed and stay away from drugs, pt verbalized understanding. Prescriptions/Medication Reconciliation: ARIPiprazole [Abilify] 10 mg PO AMHS #30 tab Divalproex [Depakote ER] 500 mg PO BID #30 ter traZODone [Desyrel] 50 mg PO HS #14 tab - Smoking Cessation Smoking Cessation Medication prescribed: No Reason for not providing: denied smoking - Antipsychotic Medications Pt discharged on 2 or more routine antipsychotic medications: No
== END 2018-03-02 15:59 | disposition home or self-care (01) | DRG 885 ==
LOC: ED 20:36 → ERH 02-21 00:06 → PSYC 02-21 01:02
PROVIDERS: ADMIT Psychiatry & Neurology Psychiatry; ATTEND Psychiatry & Neurology Psychiatry
DX: F20.9 Schizophrenia, unspecified (principal); R45.850 Homicidal ideations; F39 Unspecified mood [affective] disorder; Z91.14 Patient's other noncompliance with medication regimen; Z91.19 Patient's noncompliance with other medical treatment and regimen; Z86.11 Personal history of tuberculosis; Z79.899 Other long term (current) drug therapy